=== PATIENT | female | born 1955 | race Caucasian/White ===

== ENCOUNTER 2017-11-02 08:02 | Day surgery (SDC) | payer OTHER, SELFPAY ==
--- NOTE | 2017-11-02 | PATH_ITS ---
[facility] Accession Number: [id number] . 01 Material submitted: . GASTRIC BIOPSY . 01 Clinical history: . FOR H.PYLORI . 02 Diagnosis: Stomach, Biopsies: Antral and body-type mucosa with no diagnostic abnormality. Negative for Helicobacter organisms by immunohistochemistry. Negative for intestinal metaplasia. Negative for dysplasia and malignancy. . I11/03/2017 . 02 Electronically signed: . Lyubov Olmos MD, Pathologist NPI- [id number] . 01 Gross description: . Received one formalin-filled container labeled with the patient's name and labeled gastric. The specimen consists of two less than 0.1 cm to 0.3 cm portions of tissue, entirely submitted in one cassette. (DC:[id number]) /FRR . 02 Microscopic: . An immunohistochemical stain was performed to evaluate for Helicobacter organisms and is negative. The control stain showed appropriate reactivity. . * This test was developed and its performance characteristics determined by [facility]. It has not been cleared or approved by the U.S. Food and Drug Administration. The FDA has determined that such clearance or approval is not necessary. This test is used for clinical purposes. It should not be regarded as investigational or for research. . 02 Pathologist provided ICD-10: R10.9 . 02 CPT . 908996, [id number] Performed at: 01 [facility] [address] [facility] [place], [place], [place] [id number] MD Serjio Santamaria MD Phone: [phone] Performed at: [facility] [id number] [place], [place] [id number] MD Jose Quintero MD Phone: [phone]
[2017-11-02] MEDS: SODIUM CHLORIDE 0.9% 1,000 ML 42 ML IV (08:19)
[2017-11-02 08:20] VITALS: BP 119/71; PULSE 66; RESP 15; TEMP 36.4; O2SAT 99; BMI 20.7
--- NOTE | 2017-11-02 09:14 | PM.HP.1 ---
History of Present Illness Date Patient Seen: 11/02/17 Time Patient Seen: 09:14 Chief complaint: [id number] Narrative: Severe GE reflux Patient History Family & Social History Social History: household members spouse Meds Allergies Allergy/AdvReac Type Severity Reaction Status Date / Time No Known Drug Allergies Allergy Verified 11/02/17 08:38 Exam Vital Signs (past 8 hours): - 11/02/17 08:20 Temperature 97.6 F Pulse Rate 66 Respiratory Rate 15 Blood Pressure 119/71 Pulse Oximetry 99 Oxygen Delivery Method Room Air Narrative Exam Narrative: Chest clear to auscultation percussion Oropharynx free of lesions Cardiac exam reveals no S3 or murmur Assessment & Plan Plan: Assessment/Plan Narrative: History of severe GE reflux unresponsive to Prilosec. Rule out significant esophagitis. Risks, benefits, and alternatives have been explained for upper endoscopy.
[2017-11-02] MEDS: MIDAZOLAM 5 MG/5 ML VIAL IV (09:53)
[2017-11-02] MEDS: fentaNYL 250 MCG/5 ML INJ IV (09:54)
[2017-11-02 10:03] VITALS: BP 104/75; PULSE 59; RESP 16; TEMP 36.4; O2SAT 96
--- NOTE | 2017-11-02 10:03 | PM.OP.ENDO ---
Operative Date/Time/Diagnoses Date of procedure: 11/02/17 Time of procedure: 10:03 Pre-op diagnosis: See indication Post-op diagnosis: same (See findings) Procedure & Clinicians Study performed: EGD Same procedure as scheduled: Yes Indications: Severe GE reflux Surgeon: Akilah Simmons Procedure Notes Procedure in detail: Procedure Notes Procedure in detail: After informed consent was obtained the patient was placed in the left lateral decubitus position. Video upper scope was placed into the oropharynx and with the patient all told the esophagus but the esophagus stomach and duodenum were carefully examined. On withdrawal retroflex view of the GE junction was performed. The scope was removed. The patient tolerated procedure well Blood loss none Complications none Sedation Versed 4 mg fentanyl 100 mcg IV titration Total sedation time 12 min Findings 1. Completely normal esophagus with no evidence of abnormal tissue above the level of the gastric folds and no esophagitis 2. Mild streaky gastric erythema biopsies taken to rule out Helicobacter 3. Normal duodenal bulb and sweep I would continue her on her current medication but if she would like some direction as to how to adjust her medication she should follow up in the office
[2017-11-02 10:08] VITALS: BP 100/67; PULSE 58; RESP 12; O2SAT 95
[2017-11-02 10:13] VITALS: BP 98/71; PULSE 56; RESP 12; O2SAT 95
[2017-11-02 10:21] VITALS: BP 97/70; PULSE 67; RESP 14; TEMP 36.7; O2SAT 97
== END 2017-11-02 10:33 ==
LOC: ENDO 08:04
PROVIDERS: PCP Physician Assistant Medical; Visit Provider Internal Medicine Gastroenterology
PROC: 0DJ08ZZ Inspection of Upper Intestinal Tract, Via Natural or Artificial Opening Endoscopic (ICD-10-PCS; CPT 43235; principal; 2017-11-02 09:30)
DX: K21.9 Gastro-esophageal reflux disease without esophagitis (principal)
CPT/HCPCS: 43239; 88305; 88342; J2250; J3010

== ENCOUNTER → 2020-01-01 08:50 | Outpatient (CLI) | payer OTHER, SELFPAY ==
[2020-01-01 10:17] LABS: Hematocrit 38.8 % (36-46); Hemoglobin 12.7 g/dL (12.0-16.0); Mean Corpuscular HGB Conc 32.6 % (30-36); Mean Corpuscular Volume 92.2 fL (80-100); Platelet Count 291 X10^3/uL (150-400); Red Blood Cell Count 4.21 X10^6/uL (4.0-5.2); Red Cell Distribution Width 13.7 % (11.6-14.8); White Blood Cell Count 3.8 X10^3/uL (4.5-11.0)
[2020-01-01 10:30] LABS: Alanine Aminotransferase 14 IU/L (<35); Albumin 4.2 g/dL (3.5-5.0); Albumin Globulin Ratio 1.5 (1.0-2.8); Alkaline Phosphatase 46 U/L (38-126); Aspartate Aminotransferase 26 IU/L (14-36); BUN Creatinine Ratio 25.4 (6-22); Bilirubin Total 0.4 mg/dL (0.2-1.3); Blood Urea Nitrogen 17 mg/dL (7-17); Calcium 9.6 mg/dL (8.4-10.2); Carbon Dioxide 32 mmol/L (22-32); Chloride 103 mmol/L (98-107); Cholesterol 212 mg/dL (140-199); Estimated Glomerular Filt Rate > 60.0 mL/min (>60); Globulin 2.8 g/dL (1.7-4.1); Glucose 105 mg/dL (80-110); HEMOLYSIS < 15 (0-50); Potassium 4.5 mmol/L (3.4-5.1); Sodium 137 mmol/L (137-145); Triglycerides 50 mg/dL (35-150)
[2020-01-01 10:39] LABS: HDL Cholesterol 120 mg/dL (40-60); LDL Cholesterol Calculated 82 mg/dL (<100)
[2020-01-01 10:58] LABS: TSH w/ Reflex to FT4 2.25 uIU/mL (0.47-4.68)
== END ==
PROVIDERS: PCP Registered Nurse Diabetes Educator; Referring Provider Registered Nurse Diabetes Educator; Visit Provider Registered Nurse Diabetes Educator
DX: Z00.00 Encounter for general adult medical examination without abnormal findings (principal)
CPT/HCPCS: 36415; 80053; 80061; 84443; 85027

== ENCOUNTER → 2020-02-05 09:33 | Outpatient (CLI) | payer OTHER, SELFPAY ==
--- NOTE | 2020-02-05 09:35 | DI.RAD.S_ITS ---
PROCEDURE: XR ACUTE ABDOMEN SERIES INDICATIONS: lower abdominal pain TECHNIQUE: One view chest and two views of the abdomen were acquired. COMPARISON: None. FINDINGS: Surgical changes and devices: None. Chest: Lungs are clear. Heart size is normal. No pleural effusions. No pneumoperitoneum. Abdomen: Bowel gas pattern is normal. No suspicious calcifications. Visualized solid organ contours appear normal. Bones: No suspicious bony lesions. Mild S-shaped scoliosis. IMPRESSION: Normal bowel gas pattern. Dictated by: Dc Foss [facility] Interpreted: Haylee Walls MD on 02/05/2020 at 9:49 Approved by: Haylee Walls M.D. on 02/05/2020 at 14:46
== END ==
PROVIDERS: PCP Registered Nurse Diabetes Educator; Referring Provider Registered Nurse Diabetes Educator; Visit Provider Registered Nurse Diabetes Educator
DX: R10.30 Lower abdominal pain, unspecified (principal)
CPT/HCPCS: 74022

== ENCOUNTER 2020-02-09 09:25 | Emergency (ER) | payer OTHER, SELFPAY ==
[2020-02-09] VITALS (7 sets, daily range): BP systolic 129–133; BP diastolic 70–79; PULSE 64–77; RESP 12–23; TEMP 36.7; O2SAT 99–100; BMI 19.3
--- NOTE | 2020-02-09 09:45 | ED_ITS ---
HPI - Abdominal Pain General Chief Complaint: Abdominal Pain Stated Complaint: stomach pain for several weeks, worsening Time Seen by Provider: 02/09/20 09:28 History of Present Illness HPI narrative: 64-year-old woman with a history of reflux and a bilateral mastectomy for breast cancer 20 years ago with no recurrent disease presents with increasing left lower quadrant pain. It has been present for a number of weeks getting progressively worse and to the point today where she was having enough pain that further evaluation was appropriate. She did see her primary care provider,[facility] They tried dicyclomine and an x-ray was done. An ultrasound has been ordered pending insurance approval. The pain is described as a gnawing aching pain in the left lower quadrant that does not completely resolve. Clearly is getting worse. It is worse with an empty stomach and seems to be worse with standing or sitting better when she is up and moving around. She notes that she has had minor weight change recently but has increased her exercise patterns. She also notes that that the volume of her overall stool has decreased and she is noticing that the caliber of the stool has significantly narrowed to ?snake like?. she notes no red blood or black stools. She says she did have a screening colonoscopy with polyps appreciated 3 years ago. Related Data Previous Rx's Medication Instructions Recorded omeprazole 20 mg capsule,delayed 20 mg PO BID PRN #180 cap 01/01/20 release dicyclomine 20 mg tablet 20 mg PO QID PRN #30 tab 02/05/20 Allergies Allergy/AdvReac Type Severity Reaction Status Date / Time No Known Drug Allergies Allergy Verified 02/09/20 09:48 Review of Systems Review of Systems Narrative: Pertinent positive and negative findings as per HPI Remainder of review of systems is otherwise unremarkable for Constitutional: Fevers, chills, weakness ENT: No sore throat, neck pain, ear pain CV: Chest pain, palpitations, dyspnea on exertion Respiratory: Cough, wheeze, dyspnea GI: Nausea, vomiting, diarrhea, : Dysuria, hematuria, flank pain MS: Muscle weakness, numbness, joint swelling or warmth Skin: Rashes, nonhealing lesions Neuro: Syncope, dizziness, tingling Patient History Medical History BCC (basal cell carcinoma of skin) (~2018) Breast cancer (~1998) Carpal tunnel syndrome (~2006) Chicken pox (~1963) Chronic GERD (~2009) Foot pain (~2015) Impaired fasting blood sugar Kidney stones (~2010) Measles (~1963) No significant medical problems Ovarian cyst (~2015) Retinal detachment (~2006) Wears glasses Surgical History Anesthesia History of bilateral mastectomy (~1999) History of carpal tunnel release (~2006) History of section (~1990) Patel's neuroma of right foot (~2015) Toe dislocation (~2015) Family History Father History of heart disease Hypertension Stroke Mother Breast cancer Brother Accident Grandfather History of heart disease Grandmother Breast cancer Grandfather Leukemia Grandmother No problems noted. Social History household members: spouse Smoking Status: Never smoker Smoking Status: Never smoker Exam Narrative Exam Narrative: General: Healthy appearing, in no acute distress. Able to give a complete and coherent history. Well-nourished well-developed HEENT: Moist mucous membranes, normal sclera with reactive pupils, Neck: No JVD, supple Respiratory: Lungs are clear to auscultation, no wheezing no rales no rhonchi. Full and symmetrical air movement Cardiac: Regular rate and rhythm no murmurs no bruits Abdomen: Soft, mild tenderness in the left lower quadrant without rebound or guarding no palpable masses appreciated, good bowel tones, no flank pain Skin: Warm and dry, no rashes Neurologic: Grossly neurologically intact with no obvious asymmetries or abnormalities Extremities: No trauma, well perfused Psych: Cooperative, appropriate insight and affect Initial Vital Signs Initial Vital Signs: Vital Signs Temperature 98.0 F 02/09/20 09:43 Pulse Rate 67 02/09/20 09:43 Respiratory Rate 18 02/09/20 09:43 Blood Pressure 133/71 02/09/20 09:43 Pulse Oximetry 100 02/09/20 09:43 Course Orders Ordered: ED Orders 02/09/20 10:34 CT abdomen pelvis w con Stat 02/09/20 10:55 Complete Blood Count AUTO DIFF Stat Comprehensive Metabolic Panel Stat Lipase Stat Partial Thromboplastin Time Stat Prothrombin Time INR Stat Vital Signs Vital signs: Vital Signs - 8 hr 02/09/20 09:43 Temperature 98.0 F Pulse Rate 67 Respiratory Rate 18 Blood Pressure 133/71 Pulse Oximetry 100 MDM - Abdominal Pain Medical Records Attestation: I reviewed the patient's medical records. Lab Data Attestation: I reviewed the patient's lab results. Result diagrams: 02/09/20 10:55 02/09/20 10:55 Labs: Lab Results 02/09/20 02/09/20 02/09/20 Range/Units 10:55 10:55 10:55 WBC 4.6 (4.5-11.0) X10^3/uL RBC 4.28 (4.0-5.2) X10^6/uL Hgb 12.8 (12.0-16.0) g/dL Hct 39.6 (36-46) % MCV 92.5 (80-100) fL MCH 30.0 (26-34) PG MCHC 32.4 (30-36) % RDW 13.5 (11.6-14.8) % Plt Count 291 (150-400) X10^3/uL Neut % (Auto) 61.7 (50-75) % Lymph % (Auto) 27.6 (25-40) % [place] % (Auto) 8.8 (3-14) % Eos % (Auto) 0.9 L (2-4) % Baso % (Auto) 1.0 (0-2) % Neut # (Auto) 2900 (8219-1933) /uL Lymph # (Auto) 1300 (6742-0152) /uL [place] # (Auto) 400 (0-900) /uL Eos # (Auto) 0 (0-450) /uL Baso # (Auto) 0 (0-100) /uL PT 11.2 (10.1-12.7) SECONDS INR 1.0 (0.9-1.3) APTT 31 (26.4-36.2) SECONDS Sodium 137 (137-145) mmol/L Potassium 4.5 (3.4-5.1) mmol/L Chloride 104 (98-107) mmol/L Carbon Dioxide 30 (22-32) mmol/L BUN 15 (7-17) mg/dL Creatinine 0.69 (0.52-1.04) mg/dL Estimated GFR > 60.0 (>60) mL/min BUN/Creatinine Ratio 21.7 (6-22) Glucose 103 (80-110) mg/dL Calcium 9.8 (8.4-10.2) mg/dL Total Bilirubin 0.7 (0.2-1.3) mg/dL AST 30 (14-36) IU/L ALT 17 (<35) IU/L Alkaline Phosphatase 51 (38-126) U/L Total Protein 7.3 (6.3-8.2) g/dL Albumin 4.5 (3.5-5.0) g/dL Globulin 2.8 (1.7-4.1) g/dL Albumin/Globulin Ratio 1.6 (1.0-2.8) Lipase 123 (23-300) U/L Point of care testing: Urine Dip Bedside Urine Glucose Negative Bedside Urine Bilirubin - Negative Bedside Urine Ketone - Negative Urine Specific Marlin 1.015 Bedside Urine Occult Blood - Negative Bedside Urine pH 8.0 Bedside Urine Protein - Negative Bedside Urine Urobilinogen - Negative Bedside Urine Nitrite - Negative Bedside Urine Leukocytes - Negative Esterase Imaging Data Chest x-ray: Radiologist's Impression: FINDINGS: Surgical changes and devices: None. Chest: Lungs are clear. Heart size is normal. No pleural effusions. No pneumoperitoneum. Abdomen: Bowel gas pattern is normal. No suspicious calcifications. Visualized solid organ contours appear normal. Bones: No suspicious bony lesions. Mild S-shaped scoliosis. IMPRESSION: Normal bowel gas pattern. Dictated by: Dc Foss [facility] Interpreted: Haylee Walls MD on 02/05/2020 at 9:49 CT scan - abdomen/pelvis: Radiologist's Impression: FINDINGS: Image quality: Excellent. ABDOMEN: Lung bases: Lung bases are clear. Heart size is normal. Solid organs: Liver is normal in size and enhancement. Gallbladder wall is not thickened. Biliary system is non dilated. Pancreas enhances normally. Spleen is normal in size and enhancement. No adrenal nodules. Kidneys demonstrate normal size and enhancement, without hydronephrosis. Peritoneum and bowel: In this patient with this given history, scrutiny is given to sigmoid colon and in the left lower quadrant. There is mild sigmoid diverticulosis, without findings of active diverticulitis. No distal colonic masses are seen. Bowel loops demonstrate normal wall thickness and caliber. No free fluid or air. Nodes and vessels: No retroperitoneal or mesenteric adenopathy by size criteria. Aorta and inferior vena cava are normal in size. Miscellaneous: No ventral hernias. PELVIS: Genitourinary: Bladder wall thickness is normal. An atrophic uterus is seen. No adnexal masses are seen. Miscellaneous: No inguinal hernias or adenopathy. Bones: No suspicious bony lesions. No vertebral body compression fractures. Mild levoconvex scoliotic curvature is noted. Focal L4-L5 degenerative change is s een. Milder degenerative changes are seen elsewhere. IMPRESSION: Sigmoid diverticulosis, without diverticulitis. No distal colonic masses are seen. Please consider a scheduled colonoscopy when clinically appropriate for further evaluation of this patient's presenting history. Incidental note is made of: Levoconvex scoliotic curvature Focal L4-L5 degenerative change Dictated by: Jesus Weaver M.D. on 02/09/2020 at 11:09 MDM Narrative Medical decision making narrative: 64-year-old woman presents with a couple of weeks of left lower quadrant pain that has continued to worsen. She has noted a change to the caliber of her stools. CT scan of the abdomen does not show pelvic masses, abnormalities nor specific colon abnormalities or rectal masses. There is a moderate amount of stool throughout the colon. Suggest a mild bowel cleanse and see if this helps with the pain. She does have follow-up with her primary care provider. At this point there is no evidence for infection, surgical intervention required, pelvic or rectal masses and no overt explanation for the increasing left lower quadrant pain. Discharge Plan Departure Patient Disposition: Home Clinical Impression: Lower abdominal pain, Change in stool caliber Constipation Qualifiers: Constipation type: unspecified constipation type Qualified Code(s): K59.00 - Constipation, unspecified Instructions: DI for Constipation Activity Restrictions/Additional Instructions: Thank you for coming in today I am glad workup I was able to do in the emergency department is so reassuring. I do not find any evidence of masses, tumors or anything that would need surgical intervention. There is no evidence of kidney issues, kidney stones, uterus or ovary abnormalities and no infection. I am going to suggest that you try magnesium citrate when you get home and see if simply cleaning all of the stool out of your colon is helpful in relieving her symptoms. If it is, you do not need to continue with any additional medications however increasing fiber overall may be helpful in preventing this from happening again. If you do continue to have pain do try the dicyclomine and see if that makes a difference. I would recommend colonoscopy follow-up at 5 years from your last colonoscopy as recommended at that time. If you have new or worsening symptoms, please feel free to return to the emergency department for further evaluation. I wish you the best Prescriptions: No Action omeprazole 20 mg capsule,delayed release(DR/EC) 20 mg PO BID PRN (Reason: reflux symptoms) Qty: 180 RF: 3 dicyclomine 20 mg tablet 20 mg PO QID PRN (Reason: abdominal pain) Qty: 30 RF: 2 Referrals: Cameron Carter ARNP [Primary Care Provider] -
--- NOTE | 2020-02-09 10:34 | DI.CT.S_ITS ---
PROCEDURE: CT ABDOMEN PELVIS W CON INDICATIONS: LLQ pain, changes to stool caliber TECHNIQUE: After the administration of intravenous contrast, 5 mm thick sections acquired from the diaphragm to the symphysis. 5 mm coronal and sagittal reformats were acquired. For radiation dose reduction, the following was used: automated exposure control, adjustment of mA and/or kV according to patient size. COMPARISON: [facility], CR, XR ACUTE ABDOMEN SERIES, 02/05/2020, 9:40. [facility], CT, ABDOMEN/PELVIS WITH CONTRAST, 10/19/2015, 5:09. FINDINGS: Image quality: Excellent. ABDOMEN: Lung bases: Lung bases are clear. Heart size is normal. Solid organs: Liver is normal in size and enhancement. Gallbladder wall is not thickened. Biliary system is non dilated. Pancreas enhances normally. Spleen is normal in size and enhancement. No adrenal nodules. Kidneys demonstrate normal size and enhancement, without hydronephrosis. Peritoneum and bowel: In this patient with this given history, scrutiny is given to sigmoid colon and in the left lower quadrant. There is mild sigmoid diverticulosis, without findings of active diverticulitis. No distal colonic masses are seen. Bowel loops demonstrate normal wall thickness and caliber. No free fluid or air. Nodes and vessels: No retroperitoneal or mesenteric adenopathy by size criteria. Aorta and inferior vena cava are normal in size. Miscellaneous: No ventral hernias. PELVIS: Genitourinary: Bladder wall thickness is normal. An atrophic uterus is seen. No adnexal masses are seen. Miscellaneous: No inguinal hernias or adenopathy. Bones: No suspicious bony lesions. No vertebral body compression fractures. Mild levoconvex scoliotic curvature is noted. Focal L4-L5 degenerative change is seen. Milder degenerative changes are seen elsewhere. IMPRESSION: Sigmoid diverticulosis, without diverticulitis. No distal colonic masses are seen. Please consider a scheduled colonoscopy when clinically appropriate for further evaluation of this patient's presenting history. Incidental note is made of: Levoconvex scoliotic curvature Focal L4-L5 degenerative change Dictated by: Jesus Weaver M.D. on 02/09/2020 at 11:09 Approved by: Jesus Weaver M.D. on 02/09/2020 at 11:14
[2020-02-09 11:06] LABS: Add Manual Diff / Slide Review NO; Basophils Absolute Auto 0 /uL (0-100); Eosinophils Absolute Auto 0 /uL (0-450); Eosinophils Percent Auto 0.9 % (2-4); Hematocrit 39.6 % (36-46); Hemoglobin 12.8 g/dL (12.0-16.0); Lymphocytes Absolute Auto 1300 /uL (1100-4500); Lymphocytes Percent Auto 27.6 % (25-40); Mean Corpuscular HGB Conc 32.4 % (30-36); Mean Corpuscular Volume 92.5 fL (80-100); Monocytes Absolute Auto 400 /uL (0-900); Monocytes Percent Auto 8.8 % (3-14); Neutrophils Absolute Auto 2900 /uL (1500-7000); Neutrophils Percent Auto 61.7 % (50-75); Platelet Count 291 X10^3/uL (150-400); Red Blood Cell Count 4.28 X10^6/uL (4.0-5.2); Red Cell Distribution Width 13.5 % (11.6-14.8); White Blood Cell Count 4.6 X10^3/uL (4.5-11.0)
[2020-02-09 11:09] LABS: Prothrombin Time 11.2 SECONDS (10.1-12.7)
[2020-02-09 11:12] LABS: PTT Partial Thromboplastin Tim 31 SECONDS (26.4-36.2)
[2020-02-09 11:13] LABS: Alanine Aminotransferase 17 IU/L (<35); Albumin 4.5 g/dL (3.5-5.0); Albumin Globulin Ratio 1.6 (1.0-2.8); Alkaline Phosphatase 51 U/L (38-126); Aspartate Aminotransferase 30 IU/L (14-36); BUN Creatinine Ratio 21.7 (6-22); Bilirubin Total 0.7 mg/dL (0.2-1.3); Blood Urea Nitrogen 15 mg/dL (7-17); Calcium 9.8 mg/dL (8.4-10.2); Carbon Dioxide 30 mmol/L (22-32); Chloride 104 mmol/L (98-107); Estimated Glomerular Filt Rate > 60.0 mL/min (>60); Globulin 2.8 g/dL (1.7-4.1); Glucose 103 mg/dL (80-110); HEMOLYSIS 16 (0-50); Lipase 123 U/L (23-300); Potassium 4.5 mmol/L (3.4-5.1); Sodium 137 mmol/L (137-145); Total Protein 7.3 g/dL (6.3-8.2)
[2020-02-09] MEDS: MAGNESIUM CITRATE 300 ML SOLUTION PO (13:13)
== END 2020-02-09 13:16 | disposition home or self-care (01) ==
PROVIDERS: Emergency Provider Emergency Medicine; PCP Registered Nurse Diabetes Educator
DX: R10.32 Left lower quadrant pain (principal); K59.00 Constipation, unspecified; R19.5 Other fecal abnormalities
CPT/HCPCS: 36415; 74177; 80053; 81003; 83690; 85025; 85610; 85730; 99283; 99284; Q9967

== ENCOUNTER → 2020-03-03 09:44 | Outpatient (CLI) | payer OTHER, SELFPAY ==
--- NOTE | 2020-03-03 09:45 | DI.US.S_ITS ---
PROCEDURE: US PELVIC COMPLETE INDICATIONS: LOWER ABDOMINAL PAIN TECHNIQUE: Real-time scanning was performed of the pelvic organs, with image documentation. Additional endovaginal scanning was necessary due to incomplete visualization of the adnexal and endometrial structures by transabdominal scanning. COMPARISON: None. FINDINGS: Transabdominal scanning: Limited scanning through the kidneys shows no hydronephrosis. No pathologic free abdominal or pelvic fluid. Endovaginal scanning: Uterus: Uterus is normal in size at 2.8 x 4.5 x 6.4 cm. The endometrium measures 1.6 mm in combined thickness. Ovaries: The right ovary measures 1.5 x 0.8 x 1.5 cm and the left measures 1.5 x 0.9 x 0.9 cm. IMPRESSION: Normal pelvic ultrasound, source of reported left lower abdominal pain is not seen. Dictated by: Edwin Gardner M.D. on 03/03/2020 at 13:05 Approved by: Edwin Gardner M.D. on 03/03/2020 at 13:07
== END ==
PROVIDERS: PCP Registered Nurse Diabetes Educator; Referring Provider Registered Nurse Diabetes Educator; Visit Provider Registered Nurse Diabetes Educator
DX: R10.32 Left lower quadrant pain (principal)
CPT/HCPCS: 76830; 76856

== ENCOUNTER 2020-05-18 14:33 | Emergency (ER) | payer OTHER, SELFPAY ==
[2020-05-18] VITALS (8 sets, daily range): BP systolic 106–140; BP diastolic 66–74; PULSE 66–79; RESP 16–23; TEMP 36.6; O2SAT 99–100; BMI 19.3
--- NOTE | 2020-05-18 15:04 | ED.ABDPAIN ---
HPI - Abdominal Pain General Chief Complaint: Abdominal Pain Stated Complaint: Nausea/Abd Pain/Weight Loss Time Seen by Provider: 05/18/20 15:04 Source: patient Mode of arrival: Ambulatory Limitations: no limitations History of Present Illness HPI narrative: This is a 65-year-old female comes emergency department complaint of nausea, abdominal low back pain. Patient has had chronic abdominal pain since December. She has had CT, followed by upper and lower endoscopy in April and has seen Gastroenterology as well as had stool studies. She states they found she has too much bat in her stool but otherwise no acute causes or findings. No fevers, no chills. Today she has been nauseated all day but has no had no emesis. She is complaining of some lower back pain that started yesterday. She has had low back pain on and off in the past she states this feels different but cannot describe the difference other than feeling ?achy?. She has also had some abdominal discomfort shooting around throughout her abdomen with no specific location. Patient denies any urinary symptoms. No vaginal bleeding or discharge. She had a normal bowel movement today with no acute changes to her stools. Patient denies any other past medical issues besides mastectomy for breast cancer and . She is not on any medications regularly. She drinks 1 to alcoholic drinks nightly but no other illicit or tobacco. Her primary care is Cameron Carter. Related Data Previous Rx's Medication Instructions Recorded omeprazole 20 mg capsule,delayed 20 mg PO BID PRN #180 cap 01/01/20 release dicyclomine 20 mg tablet 20 mg PO QID PRN #30 tab 02/05/20 Allergies Allergy/AdvReac Type Severity Reaction Status Date / Time No Known Drug Allergies Allergy Verified 05/18/20 14:48 Patient History Medical History BCC (basal cell carcinoma of skin) (~2017) Breast cancer (~1998) Carpal tunnel syndrome (~2006) Chicken pox (~1963) Chronic GERD (~2009) Foot pain (~2015) Impaired fasting blood sugar Kidney stones (~2010) Measles (~1963) No significant medical problems Ovarian cyst (~2015) Retinal detachment (~2006) Wears glasses Surgical History Anesthesia History of bilateral mastectomy (~1999) History of carpal tunnel release (~2006) History of section (~1990) Patel's neuroma of right foot (~2015) Toe dislocation (~2015) Family History Father History of heart disease Hypertension Stroke Mother Breast cancer Brother Accident Grandfather History of heart disease Grandmother Breast cancer Grandfather Leukemia Grandmother No problems noted. Social History household members: spouse Smoking Status: Never smoker Smoking Status: Never smoker alcohol intake frequency: 0-2 drinks per day Substance Use Type: does not use Exam Narrative Exam Narrative: GENERAL: Alert and oriented x three, thin female in mild distress. HEENT: Head normocephalic, atraumatic, EOMI, pupils reactive, face symmetric, moist mucous membranes NECK: Supple, full range of motion CARDIOVASCULAR: Regular rate and rhythm without murmurs, rubs or gallops. RESPIRATORY: Breath sounds equal bilaterally, no wheezes rales or rhonchi. ABDOMEN: Soft, nontender. Normoactive bowel sounds all 4 quadrants. No guarding or rebound, rigidity, no mass : No CVA tenderness EXTREMITIES: Normal range of motion, no clubbing or edema. Neurovascularly intact NEUROLOGICAL: Cranial nerves II through XII grossly intact. Moving all extremities SKIN: Warm, dry, no petechiae, no rashes or lesions. Initial Vital Signs Initial Vital Signs: Vital Signs Temperature 97.8 F 05/18/20 14:48 Pulse Rate 79 05/18/20 14:48 Respiratory Rate 16 05/18/20 14:48 Blood Pressure 140/74 05/18/20 14:48 Pulse Oximetry 100 05/18/20 14:48 Scores GCS [place] coma scale eye opening: Spontaneous Ally coma scale verbal response: Orientated [place] coma scale motor response: Obey commands [place] coma scale total score: 15 Course Orders Ordered: ED Orders 05/18/20 14:47 Complete Blood Count AUTO DIFF Stat Comprehensive Metabolic Panel Stat Lipase Stat Troponin & CK Cardiac Panel Stat 05/18/20 16:00 XR acute abdomen series Stat Discontinued Medications Sodium Chloride (Normal Saline 0.9%) 1,000 mls @ 150 mls/hr IV CONT LUCIA Last Admin: 05/18/20 17:42 Dose: Not Given Documented by: KAM Sodium Chloride (Normal Saline 0.9%) 1,000 mls @ 1,000 mls/hr IV BOLUS ONE Stop: 05/18/20 17:00 Last Infusion: 05/18/20 17:20 Dose: 0 mls/hr Documented by: Admin: 05/18/20 16:21 Dose: 1,000 mls/hr Documented by: MAINOR Ondansetron HCl (Ondansetron 4 Mg/2 Ml Inj) 4 mg IV NOW ONE Stop: 05/18/20 16:01 Last Admin: 05/18/20 16:21 Dose: 4 mg Documented by: MAINOR Reevaluation(s) Reevaluation #1: Reviewed patient's labs and imaging. She is not taking any medications or supplements that are likely to cause her hyponatremia. She states she has been hydrating frequently with just water and has been ingesting quite a bit. This may be possibly a cause. Patient states her nausea has improved here in the department. She is not currently feeling dizzy. Plan to have her follow-up with her primary care alternate some of her water with Gatorade or Pedialyte and increase her salt intake slightly and see if this improves her symptoms as well as having her sodium level rechecked in the next week. 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 We discussed that the hyponatremia may or may not be related to her abdominal issues. Time: 17:08 Vital Signs Vital signs: Vital Signs - 8 hr 05/18/20 14:48 05/18/20 15:00 05/18/20 15:01 Temperature 97.8 F Pulse Rate 79 73 Respiratory Rate 16 Blood Pressure 140/74 124/71 Pulse Oximetry 100 100 05/18/20 15:30 05/18/20 16:00 05/18/20 16:30 Temperature Pulse Rate 74 74 67 Respiratory Rate 23 17 Blood Pressure 130/73 120/69 Pulse Oximetry 99 99 99 05/18/20 17:00 05/18/20 17:20 Temperature Pulse Rate 67 66 Respiratory Rate 17 17 Blood Pressure 106/66 Pulse Oximetry 100 100 MDM - Abdominal Pain Lab Data Attestation: I reviewed the patient's lab results. Result diagrams: 05/18/20 14:47 05/18/20 14:47 Labs: Lab Results 05/18/20 05/18/20 05/18/20 Range/Units 14:47 14:47 14:47 WBC 5.1 (4.5-11.0) X10^3/uL RBC 4.07 (4.0-5.2) X10^6/uL Hgb 12.2 (12.0-16.0) g/dL Hct 37.2 (36-46) % MCV 91.4 (80-100) fL MCH 30.0 (26-34) PG MCHC 32.9 (30-36) % RDW 12.6 (11.6-14.8) % Plt Count 278 (150-400) X10^3/uL Neut % (Auto) 49.2 L (50-75) % Lymph % (Auto) 39.9 (25-40) % Dickson % (Auto) 9.5 (3-14) % Eos % (Auto) 0.7 L (2-4) % Baso % (Auto) 0.7 (0-2) % Neut # (Auto) 2500 (9268-4623) /uL Lymph # (Auto) 2000 (8997-1610) /uL Dickson # (Auto) 500 (0-900) /uL Eos # (Auto) 0 (0-450) /uL Baso # (Auto) 0 (0-100) /uL Sodium 127 L (137-145) mmol/L Potassium 3.9 (3.4-5.1) mmol/L Chloride 96 L (98-107) mmol/L Carbon Dioxide 27 (22-32) mmol/L BUN 12 (7-17) mg/dL Creatinine 0.77 (0.52-1.04) mg/dL Estimated GFR > 60.0 (>60) mL/min BUN/Creatinine Ratio 15.6 (6-22) Glucose 94 (80-110) mg/dL Calcium 9.6 (8.4-10.2) mg/dL Total Bilirubin 0.4 (0.2-1.3) mg/dL AST 26 (14-36) IU/L ALT 13 (<35) IU/L Alkaline Phosphatase 56 (38-126) U/L Total Creatine Kinase 51 (30-135) U/L CK-MB (CK-2) TNP CK-MB (CK-2) Rel Index TNP Troponin I < 0.012 (0.01-0.034) ng/mL Total Protein 7.1 (6.3-8.2) g/dL Albumin 4.4 (3.5-5.0) g/dL Globulin 2.7 (1.7-4.1) g/dL Albumin/Globulin Ratio 1.6 (1.0-2.8) Lipase 243 (23-300) U/L Point of care testing: Urine Dip Bedside Urine Glucose Negative Bedside Urine Bilirubin - Negative Bedside Urine Ketone - Negative Urine Specific [place] 1.005 Bedside Urine Occult Blood - Negative Bedside Urine pH 6 Bedside Urine Protein - Negative Bedside Urine Urobilinogen - Negative Bedside Urine Nitrite - Negative Bedside Urine Leukocytes - Negative Esterase Imaging Data Abdominal x-ray: Radiologist's Impression: Salome Bernal 65 F [address] [id number] ReportSigned Patient: Salome Bernal DMR#: [id number]: 1955cct:[id number]/Sex: 65 / FDate of Service: 05/18/20Loc: EDAccession Number: [id number] Procedure: XR acute abdomen series Ordering Provider: Radha Baker D.O. PROCEDURE: XR ACUTE ABDOMEN SERIES INDICATIONS: nausea/low back pain, chronic abd pain TECHNIQUE: One view chest and two views of the abdomen were acquired. COMPARISON: [facility], , XR ACUTE ABDOMEN SERIES, 02/05/2020, 9:40. FINDINGS: Surgical changes and devices: None. Chest: Lungs are clear. Heart size is normal. No pleural effusions. No pneumoperitoneum. Abdomen: Bowel gas pattern is normal. No suspicious calcifications. Visualized solid organ contours appear normal. Bones: No suspicious bony lesions. IMPRESSION: No acute process. Dictated by: Jose Hicks M.D. on 05/18/2020 at 16:18 Approved by: Jose Hicks M.D. on 05/18/2020 at 16:18 [facility] Narrative Medical decision making narrative: This is a 65-year-old female who comes in with complaint of chronic abdominal pain. Today she returns for nausea which she has had intermittently but has been persistent today as well as some recurrent abdominal discomfort and low back discomfort. Patient states she has had the back issues in the past this feels different she can only describe it as icky.Patient's labs show hyponatremia initial x-ray testing does not show any acute changes. Patient has had CT, EGD and colonoscopy, stool studies swelling up with gastroenterology and has been scheduled for an MRI of her abdomen with a benign abdominal exam and no other significant lab findings we discussed that she will continue to follow up with her regular planned care. She has been increasing her hydration significantly and we discussed some alterations she can make and she will need to have some sodium we tested. Return precautions discussed all questions answered. Discharge Plan Departure Patient Disposition: Home Clinical Impression: Hyponatremia Instructions: DI for Hyponatremia Activity Restrictions/Additional Instructions: Follow up with your physician this week for recheck of your sodium level. Your labs show hyponatremia or a low sodium level. This can be making you feel nauseated. Return to the emergency department for fevers, lightheadedness or passing out, new weakness, difficulty with movement, difficulty with speech, new chest pain or shortness of breath, new or worsening abdominal or back pain, persistent vomiting, difficulty with urination or inability to urinate, or other new or concerning symptoms. Prescriptions: No Action omeprazole 20 mg capsule,delayed release(DR/EC) 20 mg PO BID PRN (Reason: reflux symptoms) Qty: 180 RF: 3 dicyclomine 20 mg tablet 20 mg PO QID PRN (Reason: abdominal pain) Qty: 30 RF: 2 Referrals: Cameron Carter ARNP [Primary Care Provider] -
[2020-05-18 15:48] LABS: Add Manual Diff / Slide Review NO; Basophils Absolute Auto 0 /uL (0-100); Basophils Percent Auto 0.7 % (0-2); Eosinophils Absolute Auto 0 /uL (0-450); Eosinophils Percent Auto 0.7 % (2-4); Hematocrit 37.2 % (36-46); Hemoglobin 12.2 g/dL (12.0-16.0); Lymphocytes Absolute Auto 2000 /uL (1100-4500); Lymphocytes Percent Auto 39.9 % (25-40); Mean Corpuscular HGB Conc 32.9 % (30-36); Mean Corpuscular Volume 91.4 fL (80-100); Monocytes Absolute Auto 500 /uL (0-900); Monocytes Percent Auto 9.5 % (3-14); Neutrophils Absolute Auto 2500 /uL (1500-7000); Neutrophils Percent Auto 49.2 % (50-75); Platelet Count 278 X10^3/uL (150-400); Red Blood Cell Count 4.07 X10^6/uL (4.0-5.2); Red Cell Distribution Width 12.6 % (11.6-14.8); White Blood Cell Count 5.1 X10^3/uL (4.5-11.0)
[2020-05-18 15:51] LABS: Alanine Aminotransferase 13 IU/L (<35); Albumin 4.4 g/dL (3.5-5.0); Albumin Globulin Ratio 1.6 (1.0-2.8); Alkaline Phosphatase 56 U/L (38-126); Aspartate Aminotransferase 26 IU/L (14-36); BUN Creatinine Ratio 15.6 (6-22); Bilirubin Total 0.4 mg/dL (0.2-1.3); Blood Urea Nitrogen 12 mg/dL (7-17); Calcium 9.6 mg/dL (8.4-10.2); Carbon Dioxide 27 mmol/L (22-32); Chloride 96 mmol/L (98-107); Estimated Glomerular Filt Rate > 60.0 mL/min (>60); Globulin 2.7 g/dL (1.7-4.1); Glucose 94 mg/dL (80-110); HEMOLYSIS 16 (0-50); Lipase 243 U/L (23-300); Potassium 3.9 mmol/L (3.4-5.1); Sodium 127 mmol/L (137-145); Total Protein 7.1 g/dL (6.3-8.2)
--- NOTE | 2020-05-18 16:00 | DI.RAD.S_ITS ---
PROCEDURE: XR ACUTE ABDOMEN SERIES INDICATIONS: nausea/low back pain, chronic abd pain TECHNIQUE: One view chest and two views of the abdomen were acquired. COMPARISON: [facility], , XR ACUTE ABDOMEN SERIES, 02/05/2020, 9:40. FINDINGS: Surgical changes and devices: None. Chest: Lungs are clear. Heart size is normal. No pleural effusions. No pneumoperitoneum. Abdomen: Bowel gas pattern is normal. No suspicious calcifications. Visualized solid organ contours appear normal. Bones: No suspicious bony lesions. IMPRESSION: No acute process. Dictated by: Jose Hicks M.D. on 05/18/2020 at 16:18 Approved by: Jose Hicks M.D. on 05/18/2020 at 16:18
[2020-05-18 16:14] LABS: Creatine Kinase 51 U/L (30-135)
[2020-05-18] MEDS: SODIUM CHLORIDE 0.9% 1,000 ML 1000 ML IV (16:21)
[2020-05-18] MEDS: ONDANSETRON 4 MG/2 ML INJ IV (16:21)
[2020-05-18 16:27] LABS: Troponin I < 0.012 ng/mL (0.01-0.034)
== END 2020-05-18 17:44 | disposition home or self-care (01) ==
PROVIDERS: Emergency Provider Emergency Medicine; PCP Registered Nurse Diabetes Educator
DX: E87.1 Hypo-osmolality and hyponatremia (principal); R11.0 Nausea; M54.5 Low back pain; R10.9 Unspecified abdominal pain
CPT/HCPCS: 36415; 74022; 80053; 81003; 82550; 83690; 84484; 85025; 93005; 96365; 96375; 99283; 99284; J2405

== ENCOUNTER → 2020-05-21 07:04 | Outpatient (CLI) | payer OTHER, SELFPAY ==
[2020-05-21 08:11] LABS: Hematocrit 36.8 % (36-46); Hemoglobin 12.2 g/dL (12.0-16.0); Mean Corpuscular Hemoglobin 30.2 PG (26-34); Mean Corpuscular Volume 91.5 fL (80-100); Platelet Count 251 X10^3/uL (150-400); Red Blood Cell Count 4.02 X10^6/uL (4.0-5.2); Red Cell Distribution Width 13.1 % (11.6-14.8); White Blood Cell Count 3.2 X10^3/uL (4.5-11.0)
[2020-05-21 08:18] LABS: BUN Creatinine Ratio 16.4 (6-22); Blood Urea Nitrogen 12 mg/dL (7-17); Calcium 9.7 mg/dL (8.4-10.2); Carbon Dioxide 30 mmol/L (22-32); Chloride 99 mmol/L (98-107); Estimated Glomerular Filt Rate > 60.0 mL/min (>60); Glucose 81 mg/dL (80-110); HEMOLYSIS < 15 (0-50); Potassium 4.2 mmol/L (3.4-5.1); Sodium 134 mmol/L (137-145)
[2020-05-21 09:35] LABS: Neutrophils Absolute Manual 1024 /uL (3000-5900); Total Cells Counted 100
[2020-05-21 09:36] LABS: RBC Morphology Normal Morphology
== END ==
PROVIDERS: PCP Registered Nurse Diabetes Educator; Referring Provider Registered Nurse Diabetes Educator; Visit Provider Registered Nurse Diabetes Educator
DX: D72.819 Decreased white blood cell count, unspecified (principal); R73.01 Impaired fasting glucose; E87.1 Hypo-osmolality and hyponatremia
CPT/HCPCS: 36415; 80048; 85025

== ENCOUNTER → 2020-05-28 07:07 | Outpatient (CLI) | payer OTHER, SELFPAY ==
[2020-05-28 08:12] LABS: Hematocrit 36.1 % (36-46); Hemoglobin 12.2 g/dL (12.0-16.0); Mean Corpuscular HGB Conc 33.8 % (30-36); Mean Corpuscular Hemoglobin 30.6 PG (26-34); Mean Corpuscular Volume 90.7 fL (80-100); Platelet Count 257 X10^3/uL (150-400); Red Blood Cell Count 3.98 X10^6/uL (4.0-5.2); White Blood Cell Count 4.2 X10^3/uL (4.5-11.0)
[2020-05-28 08:25] LABS: BUN Creatinine Ratio 23.9 (6-22); Blood Urea Nitrogen 16 mg/dL (7-17); Calcium 9.3 mg/dL (8.4-10.2); Carbon Dioxide 28 mmol/L (22-32); Chloride 100 mmol/L (98-107); Estimated Glomerular Filt Rate > 60.0 mL/min (>60); Glucose 74 mg/dL (80-110); HEMOLYSIS < 15 (0-50); Potassium 4.1 mmol/L (3.4-5.1); Sodium 135 mmol/L (137-145)
[2020-05-28 08:38] LABS: Neutrophils Absolute Manual 2478 /uL (3000-5900); RBC Morphology Normal Morphology; Total Cells Counted 100
[2020-05-28 09:09] LABS: TSH w/ Reflex to FT4 3.28 uIU/mL (0.47-4.68)
== END ==
PROVIDERS: PCP Registered Nurse Diabetes Educator; Referring Provider Registered Nurse Diabetes Educator; Visit Provider Registered Nurse Diabetes Educator
DX: E87.1 Hypo-osmolality and hyponatremia (principal); R42 Dizziness and giddiness; D70.9 Neutropenia, unspecified; R10.12 Left upper quadrant pain; R63.4 Abnormal weight loss
CPT/HCPCS: 36415; 80048; 84443; 85025; 85060

== ENCOUNTER → 2020-07-31 14:08 | Outpatient (CLI) | payer OTHER, SELFPAY ==
[2020-07-31 14:37] LABS: Add Manual Diff / Slide Review NO; Basophils Absolute Auto 0 /uL (0-100); Basophils Percent Auto 0.9 % (0-2); Eosinophils Absolute Auto 100 /uL (0-450); Eosinophils Percent Auto 2.4 % (2-4); Hematocrit 37.1 % (36-46); Hemoglobin 12.4 g/dL (12.0-16.0); Lymphocytes Absolute Auto 1500 /uL (1100-4500); Lymphocytes Percent Auto 33.3 % (25-40); Mean Corpuscular HGB Conc 33.4 % (30-36); Mean Corpuscular Volume 92.9 fL (80-100); Monocytes Absolute Auto 500 /uL (0-900); Neutrophils Absolute Auto 2500 /uL (1500-7000); Neutrophils Percent Auto 53.4 % (50-75); Platelet Count 275 X10^3/uL (150-400); Red Cell Distribution Width 14.1 % (11.6-14.8); White Blood Cell Count 4.6 X10^3/uL (4.5-11.0)
[2020-07-31 14:51] LABS: Alanine Aminotransferase 18 IU/L (<35); Albumin 4.5 g/dL (3.5-5.0); Albumin Globulin Ratio 1.6 (1.0-2.8); Alkaline Phosphatase 59 U/L (38-126); Aspartate Aminotransferase 29 IU/L (14-36); BUN Creatinine Ratio 27.7 (6-22); Blood Urea Nitrogen 18 mg/dL (7-17); Calcium 9.6 mg/dL (8.4-10.2); Carbon Dioxide 29 mmol/L (22-32); Chloride 103 mmol/L (98-107); Estimated Glomerular Filt Rate > 60.0 mL/min (>60); Globulin 2.8 g/dL (1.7-4.1); Glucose 115 mg/dL (80-110); HEMOLYSIS < 15 (0-50); Potassium 4.1 mmol/L (3.4-5.1); Sodium 138 mmol/L (137-145); Total Protein 7.3 g/dL (6.3-8.2)
[2020-07-31 14:52] LABS: Bilirubin Total < 0.1 mg/dL (0.2-1.3)
== END ==
PROVIDERS: PCP Registered Nurse Diabetes Educator; Referring Provider Family Medicine; Visit Provider Family Medicine
DX: R19.5 Other fecal abnormalities (principal); Z90.49 Acquired absence of other specified parts of digestive tract
CPT/HCPCS: 36415; 80053; 85025

== ENCOUNTER → 2020-08-01 07:49 | Outpatient (CLI) | payer OTHER, SELFPAY ==
[2020-08-02 17:27] LABS: Calprotectin, Stool 43 ug/g (0-120)
== END ==
PROVIDERS: PCP Registered Nurse Diabetes Educator; Referring Provider Family Medicine; Visit Provider Family Medicine
DX: R10.12 Left upper quadrant pain (principal); R19.5 Other fecal abnormalities; Z90.49 Acquired absence of other specified parts of digestive tract
CPT/HCPCS: 83993

== ENCOUNTER 2020-10-22 09:45 | Outpatient (RCR) | payer OTHER, SELFPAY ==
--- NOTE | 2020-10-15 12:20 | PT.OIE ---
Current Diagnoses Lower abdominal pain, unspecified (10/15/20) Abnormal posture (10/15/20) Past Medical History (Last Reviewed 07/31/20 @ 15:20 by Harris Mims MD) BCC (basal cell carcinoma of skin) (~2017) Breast cancer (~1998) Carpal tunnel syndrome (~2006) Chicken pox (~1963) Chronic GERD (~2009) Foot pain (~2015) History of bilateral mastectomy (~1999) History of breast cancer History of carpal tunnel release (~2006) History of section (~1990) Hx of cholecystectomy Impaired fasting blood sugar Kidney stones (~2010) Measles (~1963) No significant medical problems Ovarian cyst (~2015) Retinal detachment (~2006) Wears glasses Past Surgical History (Last Reviewed 07/31/20 @ 15:20 by Harris Mims MD) Anesthesia History of bilateral mastectomy (~1999) History of carpal tunnel release (~2006) History of section (~1990) Hx of cholecystectomy Patel's neuroma of right foot (~2015) Toe dislocation (~2015) Visit Care Team Role Provider Type NATALIE Venegas Primary Care Provider Advanced Acid Etch Operator Specialty: Medical Address: [address] [place] [address] Email: [email or web address] Harris Mims MD Attending Provider Physician Referring Provider Specialty: Family Practice Address: [address] [place] [address], [facility] Email: [email or web address] Physical Therapy Initial Evaluation PT-OP-A Visit Information Start: 10/15/20 08:44 Freq: Status: Active Protocol: Document 10/15/20 09:45 AW (Rec: 10/15/20 11:55 AW [email or web address]) Out-Patient Physical Therapy Visit Information Visit Information Visit Type Initial Evaluation Visit Start Time 09:00 Visit Stop Time 09:45 Total Visit Minutes 45 Visit Number 1 Number of MECHANICS HANDYMAN Visits 0 Evaluation Information Evaluation Date 10/15/20 Precautions Precautions history of breast cancer with B mastectomy PT-OP-B Current Condition Start: 10/15/20 08:44 Freq: Status: Active Protocol: Document 10/15/20 09:45 AW (Rec: 10/15/20 08:55 AW [email or web address]) Current Condition History of Current Condition Onset Date early 2020 Current Complaints abdominal pain, weight loss History of Current Condition Pt had laparoscopic cholecystectomy in June 2020. Her pain began before that time and continues. She has lost 12-14 pounds and has not regained any since surgery. Her lab work, however, is reassuring. Pt has ongoing lower rib pain associated with activity. It begins in her LUQ along the anterior aspect of the 12th rib and occasionally radiates to her side and back. She is most sensitive to deep palpation at the tip of her 12th rib. She feels the pain most when hiking or swimming which she engages in regularly. She also notices it during and after heavy gardening tasks. The pain feels like a tightening or cramping. It is not sharp, just sensitive. Pt denies association with eating though states she is still sensitive to too much fat in her diet which causes diarrhea almost immediately. She denies night pain. No history of shingles. She does endorse some urinary frequency and urgency in the mornings but no association with abdominal pain. Prior Treatments and Tests - laparoscopic cholecystectomy 06/21/2020 Future Testing and Treatments Planned none identified Prior Functional Status Baseline Function- ADL's Independent Baseline Function- Mobility Independent Current Functional Impairments (Reported) Functional Limitations- Recreation/ LUQ abdominal pain mostly with Hobbies activity. Pt states the pain does not stop her from hiking and swimming. Personal Factors Other Personal Factors That May Effect (+) general level of activity, Therapy/Recovery positive association with movement (+) healthy attitude toward pain PT-OP-C Subjective Start: 10/15/20 08:44 Freq: Status: Active Protocol: Document 10/15/20 09:45 AW (Rec: 10/15/20 11:55 AW [email or web address]) OP-PT Pain Assessment Pain Assessment Grid Paper Pain Assessment Grid Completed Yes: See copy scanned to EMR Comments Pain Comments Pain is primarily associated with movement but does not stop pt from hiking or swimming PT-OP-F Manual Assessment Start: 10/15/20 08:44 Freq: Status: Active Protocol: Document 10/15/20 09:45 AW (Rec: 10/15/20 11:55 AW [email or web address]) Manual Assessments Other Manual Assessments Other Manual Assessments Tender to deep palpation along left 12th rib. Abdomen is soft. Costal angle is ~90 degrees. Deep palpation of the diaphragm is not particularly painful. PT-OP-J Posture/Palpation/Skin Start: 10/15/20 08:44 Freq: Status: Active Protocol: Document 10/15/20 09:45 AW (Rec: 10/15/20 12:08 AW [email or web address]) Posture Evaluation Position Standing Head/C-Spine Posture Forward Head Shoulder Posture (L) Rounded,(R) Rounded,(L) Forward,(R) Forward Scapula Posture (L) Protracted,(R) Protracted Arm Posture (L) Internally Rotated,(R) Internally Rotated Hip Posture (L) Neutral,(R) Neutral Foot Arch (L) Medium Arch,(R) Medium Arch PT-OP-K Range of Motion Start: 10/15/20 08:44 Freq: Status: Active Protocol: Document 10/15/20 09:45 AW (Rec: 10/15/20 12:08 AW [email or web address]) Cervical Spine Range of Motion Cervical Spine Active Testing Position Sitting Comments WNL Lumbar Spine Range of Motion Lumbar Spine Active Testing Position Standing Comments WNL without pain except left lateral flexion. Fingertips reach knee joint in right lateral flexion. LUQ/rib pain noted in left lateral flexion with fingertips ~1.5 inches above knee joint Shoulder Goniometric Range of Motion Shoulder bilateral Shoulder ROM WFL Yes Hip Goniometric Range of Motion Hip bilateral Hip ROM WFL Yes Testing Position Supine PT-OP-M Strength Start: 10/15/20 08:44 Freq: Status: Active Protocol: Document 10/15/20 09:45 AW (Rec: 10/15/20 12:08 AW [email or web address]) Trunk Strength Trunk Manual Muscle Testing Testing Position Supine Core Stabilization Good active straight single leg raise without pain. Pt is able to lower bilateral legs from 90 degrees to table slowly with good control. Scapula Strength Scapula Manual Muscle Testing bilateral Elevation (C4) 5 Normal Adduction 4+ Good+ Abduction 4+ Good+ Depression 4 Good Shoulder Strength Shoulder Manual Muscle Testing bilateral Comments Grossly 5/5 in all planes without pain Hip Strength Hip Manual Muscle Testing bilateral Comments Grossly 5/5 in all planes without pain Knee Strength Knee Manual Muscle Testing bilateral Flexion (S2) 5 Normal Extension (L3) 5 Normal PT-OP-Q Treatments Start: 10/15/20 08:44 Freq: Status: Active Protocol: Document 10/15/20 09:45 AW (Rec: 10/15/20 12:08 AW [email or web address]) Therapeutic Exercises Supine Exercises diaphragmatic breathing Supine Exercise Name diaphragmatic breathing Equipment Used hands on chest/abdomen Reps/Minutes 2 min Comments focus on diaphragm recruitment vs accessory mm; no pain Sitting Exercises scapular retraction Sitting Exercise Name scapular retraction Side bilateral Reps/Minutes 2 x 10 Standing Exercises TL sidebend stretch Standing Exercise Name TL sidebend stretch Side bilateral Reps/Minutes 20 SH x 4 Manual Therapy Treatment Joint Mobilizations ribs Joint R ribs 9-12 Direction posterolateral Grade III Body Position Sitting Reps/Duration 4 min Comments assessment only with findings of good mobility PT-OP-T Assessment and Plan Start: 10/15/20 08:44 Freq: Status: Active Protocol: Document 10/15/20 09:45 AW (Rec: 10/15/20 12:20 AW [email or web address]) Physical Therapy Assessment Rehab Potential Rehabilitation Potential Excellent Evaluation Complexity Number of Personal Factors/Comorbidities 1-2 Number of Body Systems Impaired 1-2 Clinical Presentation at Evaluation Stable Impairments Impairments Pain Goals Three Impairment posture Mcfp Goal (LTG) Pt will be independent with HEP for postural awareness. LTG Duration 4 weeks - 11/12/20 Two Impairment pain with activity Mcfp Goal (LTG) Pt will swim and hike every other day without LUQ pain. LTG Duration 4 weeks - 11/12/20 One Impairment ROM Tombstone Erector Goal (LTG) Pt will be able to reach fingertips to knee joint in lateral flexion bilaterally without pain. LTG Duration 4 weeks - 11/12/20 Assessment Summary Assessment Salome is a 65 yo woman presenting to outpatient physical therapy with complaints of ongoing left upper quadrant abdominal pain along her 11th and 12th ribs. She had laparoscopic cholecystectomy in June. Pain symptoms improved but she continues to have pain with activities such as swimming and hiking. She presents with normal strength and range of motion except for pain with lumbar lateral flexion to the left side. Rib mobility was normal on assessment. Pt demonstrates excessive use of accessory muscles in respiration. Her habitual postures may be contributing to abdominal pain. Pt is expected to benefit from skilled therapy to address these impairments and to return her to regular activity without pain. Physical Therapy Plan Frequency and Duration Frequency of Treatment 1x/Week Duration of Treatment 4 weeks Plan of Care Start Date 10/15/20 Plan of Care End Date 11/14/20 Therapeutic Interventions Therapeutic Interventions Home Exercise Program,Manual Therapy,Neuromuscular Re- education,Patient/Caregiver Education,Self-Care/Home Management,Soft Tissue Mobilization,Taping, Therapeutic Activities, Therapeutic Exercises Modalities Cold Pack/Ice Massage,Hot Packs Next Visit Focus/Plan Next Note Type Treatment Note Next Visit Plan Review initial HEP and progress postural awareness
--- NOTE | 2020-10-15 12:22 | PT.OPPOC ---
Physical, Occupational & Speech Therapy At [facility] Current Diagnoses Lower abdominal pain, unspecified (10/15/20) Abnormal posture (10/15/20) Visit Care Team Role Provider Type NATALIE Venegas Primary Care Provider Advanced Paper Reclaiming Machine Operator Specialty: Medical Address: [address] [place] [address], [id number] Email: [email or web address] Harris Mims MD Attending Provider Physician Referring Provider Specialty: Family Practice Address: [address] [place] [address], [id number] Email: [email or web address] Plan Of Care PT-OP-T Assessment and Plan Start: 10/15/20 08:44 Freq: Status: Active Protocol: Document 10/15/20 09:45 AW (Rec: 10/15/20 12:20 AW [email or web address]) Physical Therapy Assessment Rehab Potential Rehabilitation Potential Excellent Evaluation Complexity Number of Personal Factors/Comorbidities 1-2 Number of Body Systems Impaired 1-2 Clinical Presentation at Evaluation Stable Impairments Impairments Pain Goals Three Impairment posture Fdc Goal (LTG) Pt will be independent with HEP for postural awareness. LTG Duration 4 weeks - 11/12/20 Two Impairment pain with activity Olive Picker Goal (LTG) Pt will swim and hike every other day without LUQ pain. LTG Duration 4 weeks - 11/12/20 One Impairment ROM Fdc Goal (LTG) Pt will be able to reach fingertips to knee joint in lateral flexion bilaterally without pain. LTG Duration 4 weeks - 11/12/20 Assessment Summary Assessment Salome is a 65 yo woman presenting to outpatient physical therapy with complaints of ongoing left upper quadrant abdominal pain along her 11th and 12th ribs. She had laparoscopic cholecystectomy in June. Pain symptoms improved but she continues to have pain with activities such as swimming and hiking. She presents with normal strength and range of motion except for pain with lumbar lateral flexion to the left side. Rib mobility was normal on assessment. Pt demonstrates excessive use of accessory muscles in respiration. Her habitual postures may be contributing to abdominal pain. Pt is expected to benefit from skilled therapy to address these impairments and to return her to regular activity without pain. Physical Therapy Plan Frequency and Duration Frequency of Treatment 1x/Week Duration of Treatment 4 weeks Plan of Care Start Date 10/15/20 Plan of Care End Date 11/14/20 Therapeutic Interventions Therapeutic Interventions Home Exercise Program,Manual Therapy,Neuromuscular Re- education,Patient/Caregiver Education,Self-Care/Home Management,Soft Tissue Mobilization,Taping, Therapeutic Activities, Therapeutic Exercises Modalities Cold Pack/Ice Massage,Hot Packs Next Visit Focus/Plan Next Note Type Treatment Note Next Visit Plan Review initial HEP and progress postural awareness Plan of Care Dates Plan of Care Start Date 10/15/20 Plan of Care End Date 11/14/20 Electronically Signed by: Va Chance, PT 10/15/20 1222 Please Sign and Return: I have reviewed this Plan of Care and certify that the skilled therapy services above are required to meet the patient?s needs. Physician Signature Date Printed Name and Credentials Clinical Instructor Signature Printed Name and Credentials
--- NOTE | 2020-10-22 10:28 | PT.OTN ---
Current Diagnoses Lower abdominal pain, unspecified (10/22/20) Abnormal posture (10/22/20) Physical Therapy Treatment Note PT-OP-A Visit Information Start: 10/15/20 08:44 Freq: Status: Active Protocol: Document 10/22/20 10:25 AW (Rec: 10/22/20 10:25 AW [id number]) Out-Patient Physical Therapy Visit Information Visit Information Visit Type Treatment Note Visit Start Time 09:45 Visit Stop Time 10:25 Total Visit Minutes 40 Visit Number 2 Number of BREAD BAKER Visits 0 Evaluation Information Evaluation Date 10/15/20 Precautions Precautions history of breast cancer with B mastectomy PT-OP-B Current Condition Start: 10/15/20 08:44 Freq: Status: Active Protocol: Document 10/15/20 09:45 AW (Rec: 10/15/20 08:55 AW [email or web address]) Current Condition History of Current Condition Onset Date early 2020 Current Complaints abdominal pain, weight loss History of Current Condition Pt had laparoscopic cholecystectomy in June 2020. Her pain began before that time and continues. She has lost 12-14 pounds and has not regained any since surgery. Her lab work, however, is reassuring. Pt has ongoing lower rib pain associated with activity. It begins in her LUQ along the anterior aspect of the 12th rib and occasionally radiates to her side and back. She is most sensitive to deep palpation at the tip of her 12th rib. She feels the pain most when hiking or swimming which she engages in regularly. She also notices it during and after heavy gardening tasks. The pain feels like a tightening or cramping. It is not sharp, just sensitive. Pt denies association with eating though states she is still sensitive to too much fat in her diet which causes diarrhea almost immediately. She denies night pain. No history of shingles. She does endorse some urinary frequency and urgency in the mornings but no association with abdominal pain. Prior Treatments and Tests - laparoscopic cholecystectomy 06/21/2020 Future Testing and Treatments Planned none identified Prior Functional Status Baseline Function- ADL's Independent Baseline Function- Mobility Independent Current Functional Impairments (Reported) Functional Limitations- Recreation/ LUQ abdominal pain mostly with Hobbies activity. Pt states the pain does not stop her from hiking and swimming. Personal Factors Other Personal Factors That May Effect (+) general level of activity, Therapy/Recovery positive association with movement (+) healthy attitude toward pain PT-OP-C Subjective Start: 10/15/20 08:44 Freq: Status: Active Protocol: Document 10/22/20 10:25 AW (Rec: 10/22/20 10:25 AW [id number]) OP-PT Subjective Patient Comments Patient Comments I think I'm having a little less pain but I have some questions about the breathing exercise. PT-OP-F Manual Assessment Start: 10/15/20 08:44 Freq: Status: Active Protocol: Document 10/15/20 09:45 AW (Rec: 10/15/20 11:55 AW [email or web address]) Manual Assessments Other Manual Assessments Other Manual Assessments Tender to deep palpation along left 12th rib. Abdomen is soft. Costal angle is ~90 degrees. Deep palpation of the diaphragm is not particularly painful. PT-OP-J Posture/Palpation/Skin Start: 10/15/20 08:44 Freq: Status: Active Protocol: Document 10/15/20 09:45 AW (Rec: 10/15/20 12:08 AW [email or web address]) Posture Evaluation Position Standing Head/C-Spine Posture Forward Head Shoulder Posture (L) Rounded,(R) Rounded,(L) Forward,(R) Forward Scapula Posture (L) Protracted,(R) Protracted Arm Posture (L) Internally Rotated,(R) Internally Rotated Hip Posture (L) Neutral,(R) Neutral Foot Arch (L) Medium Arch,(R) Medium Arch PT-OP-K Range of Motion Start: 10/15/20 08:44 Freq: Status: Active Protocol: Document 10/15/20 09:45 AW (Rec: 10/15/20 12:08 AW [email or web address]) Cervical Spine Range of Motion Cervical Spine Active Testing Position Sitting Comments WNL Lumbar Spine Range of Motion Lumbar Spine Active Testing Position Standing Comments WNL without pain except left lateral flexion. Fingertips reach knee joint in right lateral flexion. LUQ/rib pain noted in left lateral flexion with fingertips ~1.5 inches above knee joint Shoulder Goniometric Range of Motion Shoulder bilateral Shoulder ROM WFL Yes Hip Goniometric Range of Motion Hip bilateral Hip ROM WFL Yes Testing Position Supine PT-OP-M Strength Start: 10/15/20 08:44 Freq: Status: Active Protocol: Document 10/15/20 09:45 AW (Rec: 10/15/20 12:08 AW [email or web address]) Trunk Strength Trunk Manual Muscle Testing Testing Position Supine Core Stabilization Good active straight single leg raise without pain. Pt is able to lower bilateral legs from 90 degrees to table slowly with good control. Scapula Strength Scapula Manual Muscle Testing bilateral Elevation (C4) 5 Normal Adduction 4+ Good+ Abduction 4+ Good+ Depression 4 Good Shoulder Strength Shoulder Manual Muscle Testing bilateral Comments Grossly 5/5 in all planes without pain Hip Strength Hip Manual Muscle Testing bilateral Comments Grossly 5/5 in all planes without pain Knee Strength Knee Manual Muscle Testing bilateral Flexion (S2) 5 Normal Extension (L3) 5 Normal PT-OP-Q Treatments Start: 10/15/20 08:44 Freq: Status: Active Protocol: Document 10/22/20 10:25 AW (Rec: 10/22/20 10:25 AW [id number]) Therapeutic Exercises Supine Exercises bug Supine Exercise Name bug Equipment Used [facility]raball Comments OA/OL TA activation Supine Exercise Name BKFO, single leg may, double leg may Comments good TA awareness I feel it working B GH flexion Supine Exercise Name B GH flexion Side bilateral Resistance AROM Comments focus rib mobilityT diaphragmatic breathing Supine Exercise Name diaphragmatic breathing Equipment Used hands on chest/abdomen Reps/Minutes in standing, PT cues to push lower ribs out with inspiration Comments reviewed for HEP and rib mechanics Sitting Exercises scapular retraction Sitting Exercise Name scapular retraction Side bilateral Reps/Minutes 2 x 10 Comments review for standing ther ex set up Standing Exercises resisted trunk rotation Standing Exercise Name resisted trunk rotation Side bilateral Resistance TB3 Reps/Minutes 2x15 Comments no pain anti rotation press Standing Exercise Name anti rotation press Side bilateral Resistance TB3 Reps/Minutes 2x15 Comments core stab GH extension Standing Exercise Name GH extension Side bilateral Resistance TB3 Reps/Minutes 2x15 Comments focus posture, scapular mechanics resisted row Standing Exercise Name resisted row Side bilateral Resistance TB3 Reps/Minutes 2 x 15 Comments focus posture, scapular mechanics PT-OP-T Assessment and Plan Start: 10/15/20 08:44 Freq: Status: Active Protocol: Document 10/22/20 10:25 AW (Rec: 10/22/20 10:28 AW [id number]) Physical Therapy Assessment Goals Three Impairment posture Dustless Operator Goal (LTG) Pt will be independent with HEP for postural awareness. LTG Duration 4 weeks - 11/12/20 Two Impairment pain with activity Prison Goal (LTG) Pt will swim and hike every other day without LUQ pain. LTG Duration 4 weeks - 11/12/20 One Impairment ROM Prison Goal (LTG) Pt will be able to reach fingertips to knee joint in lateral flexion bilaterally without pain. LTG Duration 4 weeks - 11/12/20 Progress Towards Goals Progress Towards Goals Progressing Toward Goals Assessment Summary Assessment Salome has improving postural awareness and has been consistent with HEP. She notes she only has pain now with side bend and rotation. Added more rib mobility work to HEP this week. Physical Therapy Plan Frequency and Duration Frequency of Treatment 1x/Week Duration of Treatment 4 weeks Plan of Care Start Date 10/15/20 Plan of Care End Date 11/14/20 Therapeutic Interventions Therapeutic Interventions Home Exercise Program,Manual Therapy,Neuromuscular Re- education,Patient/Caregiver Education,Self-Care/Home Management,Soft Tissue Mobilization,Taping, Therapeutic Activities, Therapeutic Exercises Modalities Cold Pack/Ice Massage,Hot Packs Next Visit Focus/Plan Next Note Type Treatment Note Next Visit Plan Review HEP and progress postural awareness and rib mobility
--- NOTE | 2020-10-29 08:34 | PT.OPDS ---
Current Diagnoses Lower abdominal pain, unspecified (10/22/20) Abnormal posture (10/22/20) Visit Care Team Role Provider Type NATALIE Venegas Primary Care Provider Advanced Print Buyer Specialty: Medical Address: [address] [place] [address], [id number] Email: [email or web address] Harris Mims MD Attending Provider Physician Referring Provider Specialty: Family Practice Address: [address] [place] [address], [id number] Email: [email or web address] Visit Number Visit Number 2 Discharge Summary PT-OP-B Current Condition Start: 10/15/20 08:44 Freq: Status: Active Protocol: Document 10/15/20 09:45 AW (Rec: 10/15/20 08:55 AW [email or web address]) Current Condition History of Current Condition Onset Date early 2020 Current Complaints abdominal pain, weight loss History of Current Condition Pt had laparoscopic cholecystectomy in June 2020. Her pain began before that time and continues. She has lost 12-14 pounds and has not regained any since surgery. Her lab work, however, is reassuring. Pt has ongoing lower rib pain associated with activity. It begins in her LUQ along the anterior aspect of the 12th rib and occasionally radiates to her side and back. She is most sensitive to deep palpation at the tip of her 12th rib. She feels the pain most when hiking or swimming which she engages in regularly. She also notices it during and after heavy gardening tasks. The pain feels like a tightening or cramping. It is not sharp, just sensitive. Pt denies association with eating though states she is still sensitive to too much fat in her diet which causes diarrhea almost immediately. She denies night pain. No history of shingles. She does endorse some urinary frequency and urgency in the mornings but no association with abdominal pain. Prior Treatments and Tests - laparoscopic cholecystectomy 06/21/2020 Future Testing and Treatments Planned none identified Prior Functional Status Baseline Function- ADL's Independent Baseline Function- Mobility Independent Current Functional Impairments (Reported) Functional Limitations- Recreation/ LUQ abdominal pain mostly with Hobbies activity. Pt states the pain does not stop her from hiking and swimming. Personal Factors Other Personal Factors That May Effect (+) general level of activity, Therapy/Recovery positive association with movement (+) healthy attitude toward pain PT-OP-C Subjective Start: 10/15/20 08:44 Freq: Status: Active Protocol: Document 10/22/20 10:25 AW (Rec: 10/22/20 10:25 AW [id number]) OP-PT Subjective Patient Comments Patient Comments I think I'm having a little less pain but I have some questions about the breathing exercise. PT-OP-F Manual Assessment Start: 10/15/20 08:44 Freq: Status: Active Protocol: Document 10/15/20 09:45 AW (Rec: 10/15/20 11:55 AW [email or web address]) Manual Assessments Other Manual Assessments Other Manual Assessments Tender to deep palpation along left 12th rib. Abdomen is soft. Costal angle is ~90 degrees. Deep palpation of the diaphragm is not particularly painful. PT-OP-J Posture/Palpation/Skin Start: 10/15/20 08:44 Freq: Status: Active Protocol: Document 10/15/20 09:45 AW (Rec: 10/15/20 12:08 AW [email or web address]) Posture Evaluation Position Standing Head/C-Spine Posture Forward Head Shoulder Posture (L) Rounded,(R) Rounded,(L) Forward,(R) Forward Scapula Posture (L) Protracted,(R) Protracted Arm Posture (L) Internally Rotated,(R) Internally Rotated Hip Posture (L) Neutral,(R) Neutral Foot Arch (L) Medium Arch,(R) Medium Arch PT-OP-K Range of Motion Start: 10/15/20 08:44 Freq: Status: Active Protocol: Document 10/15/20 09:45 AW (Rec: 10/15/20 12:08 AW [email or web address]) Cervical Spine Range of Motion Cervical Spine Active Testing Position Sitting Comments WNL Lumbar Spine Range of Motion Lumbar Spine Active Testing Position Standing Comments WNL without pain except left lateral flexion. Fingertips reach knee joint in right lateral flexion. LUQ/rib pain noted in left lateral flexion with fingertips ~1.5 inches above knee joint Shoulder Goniometric Range of Motion Shoulder bilateral Shoulder ROM WFL Yes Hip Goniometric Range of Motion Hip bilateral Hip ROM WFL Yes Testing Position Supine PT-OP-M Strength Start: 10/15/20 08:44 Freq: Status: Active Protocol: Document 10/15/20 09:45 AW (Rec: 10/15/20 12:08 AW [email or web address]) Trunk Strength Trunk Manual Muscle Testing Testing Position Supine Core Stabilization Good active straight single leg raise without pain. Pt is able to lower bilateral legs from 90 degrees to table slowly with good control. Scapula Strength Scapula Manual Muscle Testing bilateral Elevation (C4) 5 Normal Adduction 4+ Good+ Abduction 4+ Good+ Depression 4 Good Shoulder Strength Shoulder Manual Muscle Testing bilateral Comments Grossly 5/5 in all planes without pain Hip Strength Hip Manual Muscle Testing bilateral Comments Grossly 5/5 in all planes without pain Knee Strength Knee Manual Muscle Testing bilateral Flexion (S2) 5 Normal Extension (L3) 5 Normal PT-OP-T Assessment and Plan Start: 10/15/20 08:44 Freq: Status: Active Protocol: Document 10/29/20 08:31 AW (Rec: 10/29/20 08:33 AW [email or web address]) Physical Therapy Plan Discharge Physical Therapy Discharge Reasons Patient Request Discharge Comments Pt attended PT for eval and one treatment session. She was educated in diaphragmatic breathing for improved rib mobility and given HEP for postural awareness. She called to cancel remaining appointments as she was satisfied with her progress.
== END 2020-10-30 08:31 | disposition home or self-care (01) ==
LOC: PHYS 09:45
PROVIDERS: PCP Registered Nurse Diabetes Educator; Referring Provider Family Medicine; Visit Provider Family Medicine
DX: R10.30 Lower abdominal pain, unspecified (principal); R29.3 Abnormal posture
CPT/HCPCS: 97110; 97161

== ENCOUNTER → 2021-01-16 08:57 | Outpatient (CLI) | payer OTHER, SELFPAY ==
[2021-01-16] MEDS: COVID-19 VACC #3, MRNA(MOD) 50 MCG/0.25 ML VIAL IM (09:01)
== END ==
PROVIDERS: PCP Registered Nurse Diabetes Educator; Visit Provider Internal Medicine
DX: Z23 Encounter for immunization (principal)
CPT/HCPCS: 0013A; 91301

== ENCOUNTER → 2021-06-30 07:07 | Outpatient (CLI) | payer OTHER, SELFPAY ==
[2021-06-30 07:52] LABS: Appearance Urine UA CLEAR; Bilirubin Urine UA NEGATIVE (NEGATIVE); Color Urine UA YELLOW; Glucose Urine UA NEGATIVE (Negative); Ketones Urine UA NEGATIVE (NEGATIVE); Leukocyte Esterase Urine UA TRACE (NEGATIVE); Nitrite Urine UA NEGATIVE (Negative); Occult Blood Urine UA TRACE-INTACT (Negative); Protein Urine UA NEGATIVE (Negative); Specific Gravity Urine UA <=1.005 (1.000-1.035); Urobilinogen Urine UA 0.2 E.U./dL (0.2)
[2021-06-30 08:02] LABS: RBC Urine 0-1/HPF (0-5/HPF); Squamous Epithelial Cell Urine 0-1 /HPF (0-5/HPF); WBC Urine None Seen (0-5/HPF); pH Urine UA 5.5 (4.5-8.0)
[2021-06-30 08:03] LABS: Bacteria Urine None Seen; Culture Indicated Urine Specimen Cultured
[2021-06-30 08:35] LABS: Add Manual Diff / Slide Review NO; Basophils Absolute Auto 0 /uL (0-100); Basophils Percent Auto 1.1 % (0-2); Eosinophils Absolute Auto 100 /uL (0-450); Eosinophils Percent Auto 1.8 % (2-4); Hemoglobin 12.8 g/dL (12.0-16.0); Lymphocytes Absolute Auto 1700 /uL (1100-4500); Mean Corpuscular HGB Conc 32.7 % (30-36); Mean Corpuscular Volume 91.6 fL (80-100); Monocytes Absolute Auto 400 /uL (0-900); Monocytes Percent Auto 11.2 % (3-14); Neutrophils Absolute Auto 1200 /uL (1500-7000); Neutrophils Percent Auto 35.9 % (50-75); Platelet Count 295 X10^3/uL (150-400); Red Blood Cell Count 4.26 X10^6/uL (4.0-5.2); Red Cell Distribution Width 13.4 % (11.6-14.8); White Blood Cell Count 3.3 X10^3/uL (4.5-11.0)
[2021-06-30 08:45] LABS: Alanine Aminotransferase 16 IU/L (<35); Albumin 4.5 g/dL (3.5-5.0); Albumin Globulin Ratio 1.7 (1.0-2.8); Alkaline Phosphatase 51 U/L (38-126); Amylase 103 U/L (30-110); Aspartate Aminotransferase 28 IU/L (14-36); BUN Creatinine Ratio 15.8 (6-22); Bilirubin Total 0.4 mg/dL (0.2-1.3); Blood Urea Nitrogen 12 mg/dL (7-17); Calcium 9.7 mg/dL (8.4-10.2); Carbon Dioxide 29 mmol/L (22-32); Chloride 101 mmol/L (98-107); Estimated Glomerular Filt Rate > 60 mL/min (>60); Globulin 2.7 g/dL (1.7-4.1); Glucose 100 mg/dL (80-110); HEMOLYSIS < 15 (0-50); Lipase 143 U/L (23-300); Potassium 4.2 mmol/L (3.4-5.1); Sodium 135 mmol/L (137-145); Total Protein 7.2 g/dL (6.3-8.2)
[2021-06-30 09:28] LABS: TSH w/ Reflex to FT4 3.33 uIU/mL (0.47-4.68)
[2021-07-01 20:38] LABS: Deamidated Gliadin Ab IgA 3 units (0-19); Deamidated Gliadin Ab IgG 2 units (0-19); Immunoglobulin A,Qn 159 mg/dL (87-352); t-Transglutaminase IgA <2 U/mL (0-3)
[2021-07-03 04:13] LABS: Almond IgE <0.10 kU/L (Class 0); Cashew Nut IgE <0.10 kU/L (Class 0); Codfish Allergy IgE < 0.10 kU/L (Class 0); Egg White IgE <0.10 kU/L (Class 0); Hazelnut IgE <0.10 kU/L (Class 0); Milk IgE <0.10 kU/L (Class 0); Peanut IgE <0.10 kU/L (Class 0); Salmon Allergy IgE < 0.10 kU/L (Class 0); Scallop Allergy IgE < 0.10 kU/L (Class 0); Sesame seed Allergy IgE < 0.10 kU/L (Class 0); Shrimp IgE <0.10 kU/L (Class 0); Soybean IgE <0.10 kU/L (Class 0); Tuna Allergy IgE < 0.10 kU/L (Class 0); Walnut IgE <0.10 kU/L (Class 0); Wheat Allergy IgE < 0.10 kU/L (Class 0)
== END ==
PROVIDERS: PCP Registered Nurse Diabetes Educator; Referring Provider Registered Nurse Diabetes Educator; Visit Provider Registered Nurse Diabetes Educator
DX: K21.9 Gastro-esophageal reflux disease without esophagitis (principal); R10.12 Left upper quadrant pain; R73.01 Impaired fasting glucose; R19.5 Other fecal abnormalities
CPT/HCPCS: 36415; 80053; 81001; 82150; 82784; 83516; 83690; 84443; 85025; 86003; 87086

== ENCOUNTER → 2021-07-31 07:13 | Outpatient (CLI) | payer OTHER, SELFPAY ==
[2021-07-31 07:58] LABS: Add Manual Diff / Slide Review NO; Basophils Absolute Auto 0 /uL (0-100); Basophils Percent Auto 0.8 % (0-2); Eosinophils Absolute Auto 100 /uL (0-450); Eosinophils Percent Auto 1.9 % (2-4); Hematocrit 36.8 % (36-46); Hemoglobin 12.5 g/dL (12.0-16.0); Lymphocytes Absolute Auto 1600 /uL (1100-4500); Lymphocytes Percent Auto 39.9 % (25-40); Mean Corpuscular HGB Conc 34.1 % (30-36); Mean Corpuscular Volume 90.9 fL (80-100); Monocytes Absolute Auto 400 /uL (0-900); Monocytes Percent Auto 10.5 % (3-14); Neutrophils Absolute Auto 1900 /uL (1500-7000); Neutrophils Percent Auto 46.9 % (50-75); Platelet Count 300 X10^3/uL (150-400); Red Blood Cell Count 4.04 X10^6/uL (4.0-5.2); Red Cell Distribution Width 14.1 % (11.6-14.8)
== END ==
PROVIDERS: PCP Registered Nurse Diabetes Educator; Referring Provider Registered Nurse Diabetes Educator; Visit Provider Registered Nurse Diabetes Educator
DX: D70.9 Neutropenia, unspecified (principal)
CPT/HCPCS: 36415; 85025

== ENCOUNTER → 2022-03-30 12:46 | Outpatient (CLI) | payer MEDICARE, OTHER, SELFPAY | PROVIDERS: PCP Internal Medicine; Referring Provider Internal Medicine; Visit Provider Internal Medicine | DX: Z78.0 Asymptomatic menopausal state (principal); Z13.820 Encounter for screening for osteoporosis; M85.852 Other specified disorders of bone density and structure, left thigh | CPT/HCPCS: 77080 ==

== ENCOUNTER → 2022-07-18 11:01 | Outpatient (CLI) | payer MEDICARE, OTHER, SELFPAY ==
[2022-07-18 12:27] LABS: Influenza A - CEPHEID Flu A NEGATIVE (NEGATIVE); Influenza B - CEPHEID Flu B NEGATIVE (NEGATIVE); Respiratory Syncytial Virus Negative (Negative)
[2022-07-18 12:28] LABS: COVID-19 CEPHEID 4-PLEX PCR Negative (Negative)
== END ==
PROVIDERS: PCP Internal Medicine; Visit Provider Nurse Practitioner Family
DX: R50.9 Fever, unspecified (principal)
CPT/HCPCS: 0241U

== ENCOUNTER → 2022-07-19 07:07 | Outpatient (CLI) | payer MEDICARE, OTHER, SELFPAY | PROVIDERS: PCP Internal Medicine; Referring Provider Nurse Practitioner Family; Visit Provider Nurse Practitioner Family | DX: B34.9 Viral infection, unspecified (principal) | CPT/HCPCS: 36415; 86790 ==

== ENCOUNTER → 2022-09-01 08:47 | Outpatient (CLI) | payer MEDICARE, OTHER, SELFPAY ==
[2022-09-01 10:15] LABS: Hematocrit 34.1 % (36-46); Hemoglobin 11.6 g/dL (12.0-16.0); Mean Corpuscular Hemoglobin 30.8 PG (26-34); Mean Corpuscular Volume 90.4 fL (80-100); Platelet Count 342 X10^3/uL (150-400); Red Blood Cell Count 3.77 X10^6/uL (4.0-5.2); Red Cell Distribution Width 14.4 % (11.6-14.8); White Blood Cell Count 3.5 X10^3/uL (4.5-11.0)
[2022-09-01 10:40] LABS: Alanine Aminotransferase 21 IU/L (<35); Albumin Globulin Ratio 1.4 (1.0-2.8); Alkaline Phosphatase 61 U/L (38-126); Aspartate Aminotransferase 28 IU/L (14-36); BUN Creatinine Ratio 35.2 (6-22); Bilirubin Total 0.4 mg/dL (0.2-1.3); Blood Urea Nitrogen 25 mg/dL (7-17); Carbon Dioxide 29 mmol/L (22-32); Chloride 98 mmol/L (98-107); Cholesterol 201 mg/dL (140-199); Estimated Glomerular Filt Rate > 60 mL/min (>60); Globulin 2.8 g/dL (1.7-4.1); Glucose 89 mg/dL (80-110); HEMOLYSIS < 15 (0-50); Potassium 4.6 mmol/L (3.4-5.1); Sodium 131 mmol/L (137-145); Total Protein 6.8 g/dL (6.3-8.2); Triglycerides 42 mg/dL (35-150)
[2022-09-01 10:49] LABS: HDL Cholesterol 139 mg/dL (40-60); LDL Cholesterol Calculated 54 mg/dL (<100)
[2022-09-01 11:09] LABS: TSH w/ Reflex to FT4 1.71 uIU/mL (0.47-4.68)
== END ==
PROVIDERS: PCP Internal Medicine; Referring Provider Internal Medicine; Visit Provider Internal Medicine
DX: E78.2 Mixed hyperlipidemia (principal); M85.80 Other specified disorders of bone density and structure, unspecified site; Z85.3 Personal history of malignant neoplasm of breast
CPT/HCPCS: 36415; 80053; 80061; 84443; 85027

== ENCOUNTER → 2023-09-06 08:50 | Outpatient (CLI) | payer MEDICARE, OTHER, SELFPAY ==
[2023-09-06 10:09] LABS: Hematocrit 37.6 % (36-46); Hemoglobin 12.7 g/dL (12.0-16.0); Mean Corpuscular HGB Conc 33.9 % (30-36); Mean Corpuscular Hemoglobin 31.1 PG (26-34); Mean Corpuscular Volume 91.9 fL (80-100); Platelet Count 303 X10^3/uL (150-400); Red Blood Cell Count 4.09 X10^6/uL (4.0-5.2); Red Cell Distribution Width 13.4 % (11.6-14.8)
[2023-09-06 10:28] LABS: HEMOLYSIS < 15 (0-50); Iron 90 ug/dL (37-170)
[2023-09-06 10:38] LABS: Alanine Aminotransferase 22 IU/L (<35); Albumin 4.5 g/dL (3.5-5.0); Albumin Globulin Ratio 1.7 (1.0-2.8); Alkaline Phosphatase 57 U/L (38-126); Aspartate Aminotransferase 31 IU/L (14-36); BUN Creatinine Ratio 25.7 (6-22); Bilirubin Total 0.5 mg/dL (0.2-1.3); Blood Urea Nitrogen 19 mg/dL (7-17); Calcium 9.8 mg/dL (8.4-10.2); Carbon Dioxide 31 mmol/L (22-32); Chloride 104 mmol/L (98-107); Cholesterol 224 mg/dL (140-199); Estimated Glomerular Filt Rate > 60 mL/min (>60); Globulin 2.6 g/dL (1.7-4.1); Glucose 101 mg/dL (80-110); HEMOLYSIS < 15 (0-50); Potassium 4.9 mmol/L (3.4-5.1); Sodium 137 mmol/L (137-145); Total Protein 7.1 g/dL (6.3-8.2); Triglycerides 51 mg/dL (35-150)
[2023-09-06 10:42] LABS: Percent Iron Saturation 28 % (15-50); Total Iron Binding Capacity 320 ug/dL (265-497); Transferrin 281 mg/dL (206-381)
[2023-09-06 10:50] LABS: HDL Cholesterol 146 mg/dL (40-60); LDL Cholesterol Calculated 68 mg/dL (<100)
[2023-09-06 11:05] LABS: Ferritin 31 ng/mL (11-264)
== END ==
PROVIDERS: PCP Internal Medicine; Referring Provider Internal Medicine; Visit Provider Internal Medicine
DX: E78.2 Mixed hyperlipidemia (principal); D64.9 Anemia, unspecified; Z85.3 Personal history of malignant neoplasm of breast
CPT/HCPCS: 36415; 80053; 80061; 82728; 83540; 83550; 85027

== ENCOUNTER 2023-11-27 10:26 | Emergency (ER) | payer MEDICARE, OTHER, SELFPAY ==
[2023-11-27 10:41] VITALS: BP 154/80; PULSE 72; RESP 16; TEMP 36.7; O2SAT 99; BMI 20.7
[2023-11-27] MEDS: PROPARACAINE 0.5% OPHTH SOL 1 DROPS EYE-LEFT (10:54)
[2023-11-27] MEDS: FLUORESCEIN 1 MG STRIP EYE-BOTH (11:12)
--- NOTE | 2023-11-27 11:15 | ED_ITS ---
HPI - General Adult General Chief complaint: Eye Problems Stated complaint: detached retina per pt Time Seen by Provider: 11/27/23 10:51 Source: patient Mode of arrival: Ambulatory Limitations: no limitations History of Present Illness HPI narrative: Patient is a 68-year-old female. No prior eye surgery to include no history of [place] K, Lasix, glaucoma, cataracts. She has had a retinal detachment in her right eye approximately 15-20 years ago. This was corrected. She states that it occurred after she ?jumped off of a fence?. She states the retina specialist seemed to think that it was because she had very poor vision and in astigmatism and then the Trauma which cause the symptoms. She was here today because for the past 2 days she has noticed an increase in the amount of flashes and also new floaters in her left eye. She states that these are transient. She has no loss of vision. She thinks that there are patches in her eye that are more blurry than what they normally are but she still can see through these patches. She denies headache, sinus congestion, nausea vomiting, fevers. No change in her right eye symptoms. Denies any trauma to her eye. No pain in the eye. Related Data Home Medications Medication Instructions Recorded Confirmed omeprazole 20 mg capsule,delayed 20 mg PO DAILY PRN 09/06/23 09/06/23 release Allergies Allergy/AdvReac Type Severity Reaction Status Date / Time No Known Drug Allergies Allergy Verified 09/06/23 07:50 Review of Systems Review of Systems Narrative: See HPI Patient History Medical History Primary osteoarthritis involving multiple joints Mixed hyperlipidemia Osteopenia Slow transit constipation Allergic rhinitis GERD without esophagitis History of breast cancer Wears glasses Foot pain (~2015) Carpal tunnel syndrome (~2006) Measles (~1963) Chicken pox (~1963) Retinal detachment (~2006) Ovarian cyst (~2015) Kidney stones (~2010) BCC (basal cell carcinoma of skin) (~2017) Surgical History Hx of cholecystectomy Anesthesia Toe dislocation (~2015) Patel's neuroma of right foot (~2015) History of carpal tunnel release (~2006) History of bilateral mastectomy (~1999) History of section (~1990) Family History Father History of heart disease Hypertension Stroke Mother Breast cancer Brother Accident Grandfather History of heart disease Grandmother Breast cancer Grandfather Leukemia Grandmother No problems noted. Social History household members: spouse Smoking Status: Never smoker Smoking Status: Never smoker alcohol intake frequency: 0-2 drinks per day Substance Use Type: does not use Exam Initial Vital Signs Initial Vital Signs: Vital Signs Temperature 98.0 F 11/27/23 10:41 Pulse Rate 72 11/27/23 10:41 Respiratory Rate 16 11/27/23 10:41 Blood Pressure 154/80 H 11/27/23 10:41 Pulse Oximetry 99 11/27/23 10:41 Oxygen Delivery Method Room Air 11/27/23 10:41 Const General: cooperative, comfortable and No ill appearing HENMT Head: normal to inspection Face and sinus: normal facial exam Eyes General: Yes appearance normal, both eyes and all related structures Visual Keene: normal visual keene by confrontation Alignment and Position: alignment normal and position normal Periorbital: periorbital findings normal Eyelids: eyelids normal Conjunctivae: conjunctivae normal Sclera: sclerae normal Cornea: corneas normal and fluorescein used Pupils: PERRL EOM: EOM intact bilaterally Other: Intra-ocular pressure right eye 19, intra-ocular pressure left eye 20. Skin General: no rashes or lesions noted Neuro General: patient alert, patient awake, patient oriented x3 and moves all extremities Cognition: normal cognition Speech: speech normal Course Orders Ordered: Discontinued Medications Fluorescein Sodium (Fluorescein 1 Mg Strip) 1 mg EYE-BOTH NOW ONE Stop: 11/27/23 10:52 Last Admin: 11/27/23 11:12 Dose: 1 mg Documented By: MAGGIE Proparacaine HCl (Proparacaine 0.5% Ophth Vidya) 1 drops EYE-LEFT NOW ONE Stop: 11/27/23 10:52 Last Admin: 11/27/23 10:54 Dose: 1 drop Documented By: MAGGIE Vital Signs Vital signs: Vital Signs - 8 hr 11/27/23 10:41 Temperature 98.0 F Pulse Rate 72 Respiratory Rate 16 Blood Pressure 154/80 H Pulse Oximetry 99 Oxygen Delivery Method Room Air Medical Decision Making MDM Narrative Medical decision making narrative: Patient was had 2 days of symptoms. She describes it as increase in flashes and floaters to the left eye. Some blurry vision but no loss of vision. Intra- ocular pressure is normal. Visual acuity noted. She does wear corrective lenses. No other HEENT symptoms. Low suspicion for CVA. Bedside ultrasound did not show any signs of a retinal detachment. She has no visual field deficits. No signs of infection. 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 Recommended that tomorrow she contact the evaporator supervisor office for a follow-up to discuss her symptoms. We did discuss strict return precautions. She expressed understanding and agreement plan. Discharge Plan Departure Patient Disposition: Home Clinical Impression: Visual distortions Instructions: DI for Visual Field Disturbances Activity Restrictions/Additional Instructions: I recommend that tomorrow morning you contact the ophthalmology office for a follow-up. You can let them know that you were seen here in the emergency department today and recommended that you follow-up. Return to the emergency department for new or worsening symptoms to include continued vision changes or loss of vision like we discussed. Prescriptions: No Action omeprazole 20 mg capsule,delayed release(DR/EC) 20 mg PO DAILY PRN Referrals: Alexandra Link MD [Physician] - Haim Brannon MD [Primary Care Provider] - Stand Alone Forms: Patient Portal/API
--- NOTE | 2023-11-27 11:31 | PC.NURSE ---
Left eye floaters; pt states she is concerned for a retinal detachment due to previous hx. Pt states she has astigmatism. Pt denies trauma to eye or doing any activities that may put her at risk for retinal detachment. Pt denies any new eye drops. Pt states symptoms have been persisting for the past couple of days w/ no improvement. Pupils equal round and reactive.
== END 2023-11-27 11:29 | disposition home or self-care (01) ==
PROVIDERS: Emergency Provider Emergency Medicine; PCP Internal Medicine
DX: H53.8 Other visual disturbances (principal)
CPT/HCPCS: 99282

== ENCOUNTER → 2024-08-15 09:41 | Outpatient (CLI) | payer MEDICARE, OTHER, SELFPAY ==
--- NOTE | 2024-08-15 09:46 | DI.RAD.S_ITS ---
PROCEDURE: XR CERVICAL SPINE 2V OR 3V INDICATIONS: C7 lump TECHNIQUE: Three views of the cervical spine were acquired. COMPARISON: None. FINDINGS: Cervical spine curvature and alignment: Normal. Bones: There are no osseous abnormalities. Disc spaces: Moderate C4-5 and C5-6 degenerative disc disease noted. There is mild C3-4 through C7-T1 degenerative facet disease Soft tissues: Few tiny calcifications are seen in the soft tissues overlying the C6-7 spinous processes. IMPRESSION: Degeneration. Soft tissue masses are typically not visualized by plain film. Suggest MRI if there is clinical concern Dictated by: Chato Leiva M.D. on 08/16/2024 at 12:11 Approved by: Chato Leiva M.D. on 08/16/2024 at 12:13
== END ==
PROVIDERS: PCP Internal Medicine; Referring Provider Internal Medicine; Visit Provider Internal Medicine
DX: M50.321 Other cervical disc degeneration at C4-C5 level (principal); M47.812 Spondylosis without myelopathy or radiculopathy, cervical region; G95.89 Other specified diseases of spinal cord
CPT/HCPCS: 72040

== ENCOUNTER → 2024-08-29 09:56 | Outpatient (CLI) | payer MEDICARE, OTHER, SELFPAY ==
--- NOTE | 2024-08-29 09:58 | DI.RAD.S_ITS ---
PROCEDURE: XR DEXA AXIAL SKELETON INDICATIONS: postmenopausal osteopenia COMPARISON: [facility], CR, XR DEXA AXIAL SKELETON, 03/30/2022, 13:04. FINDINGS: Lumbar Spine: Bone mineral density 0.938 (previously 0.928) g/cm2, T score -1.0 (previously -1.1). Left Femoral Neck: Bone mineral density 0.554 (previously 0.578) g/cm2, T score -2.7 (previously -2.4). Left Hip: Bone mineral density 0.821 (previously 0.856) g/cm2, T score -1.0 (previously -0.7). Fracture Risk Calculation (when applicable): 10-year fracture risk of a major osteoporotic fracture 13 percent and of a hip fracture 3.1 percent. (T score greater or equal to -1.0 to: NORMAL) (T score from -1.1 to -2.4: OSTEOPENIA) (T score less than or equal to -2.5: OSTEOPOROSIS) IMPRESSION: Osteoporosis--- recommend repeat DEXA in 2 years or less for reassessment of response to treatment. Follow-up guidelines as follows: Osteoporosis: Consider a repeat DEXA and Vertebral Fracture Assessment (VFA) exam in 2 years or sooner if medically necessary, to reassess this patient's status. Osteopenia: Consider a repeat DEXA in 2-3 years to reassess this patient's status, or if there is a new clinical indication. Normal: Consider a repeat DEXA in 5 years or sooner, or if there is a new clinical indication. All treatment decisions require clinical judgment and consideration of individual patient factors, including patient preferences, comorbidities, previous drug use, risk factors not captured in the FRAX model (e.g., frailty, falls, vitamin D deficiency, increased bone turnover, interval significant decline in bone density ) and possible under- or over-estimation of fracture risk by FRAX. In addition, the NOF Guide recommends that FDA-approved medical therapies be considered in postmenopausal women and men age >= 50 years with a: * Hip or vertebral (clinical or morphometric) fracture * T-score of <=-2.5 at the spine or hip * Ten-year fracture probability by FRAX of >= 3% for hip fracture or >=20% for major osteoporotic fracture. Dictated by: Mayo Worrell M.D. on 08/29/2024 at 18:29 Approved by: Mayo Worrell M.D. on 08/29/2024 at 18:32
== END ==
LOC: RAD 09:57
PROVIDERS: PCP Internal Medicine; Referring Provider Internal Medicine; Visit Provider Internal Medicine
DX: M81.0 Age-related osteoporosis without current pathological fracture (principal)
CPT/HCPCS: 77080

== ENCOUNTER 2024-10-02 12:19 | Emergency (ER) | payer MEDICARE, OTHER, SELFPAY ==
[2024-10-02] VITALS (9 sets, daily range): BP systolic 101–128; BP diastolic 58–78; PULSE 62–69; RESP 10–28; TEMP 36.7–37.1; O2SAT 95–100; BMI 20.7
--- NOTE | 2024-10-02 12:24 | DI.RAD.S_ITS ---
PROCEDURE: XR CHEST 1V INDICATIONS: Chest Pain TECHNIQUE: One view of the chest was acquired. COMPARISON: None. FINDINGS: Surgical changes and devices: None. Lungs and pleura: Lungs are clear. No pleural effusions or pneumothorax. Mediastinum: Mediastinal contours appear normal. Heart size is normal. Bones and chest wall: Moderate dextroscoliosis of thoracolumbar spine is seen. No suspicious bony lesions. Overlying soft tissues appear unremarkable. IMPRESSION: No acute cardiopulmonary pathology. Dictated by: Wil Davis M.D. on 10/02/2024 at 12:40 Approved by: Wil Davis M.D. on 10/02/2024 at 12:40
--- NOTE | 2024-10-02 12:24 | EKG_ITS ---
[address] [address] Test Date: 2024-10-02 Pat Name: Salome Bernal Department: Room: Gender: Female Rag Shredder: JIMENEZ : 1955 Requested By: Order Number: [id number] Reading MD: Trevon Bhatia Measurements Intervals [place] Rate: 63 P: 72 OR: 186 QRS: 82 QRSD: 82 T: 55 QT: 402 QTc: 411 Interpretive Statements Normal sinus rhythm Possible Left atrial enlargement Electronically Signed On 10-12-2024 13:39:43 PDT by Trevon Bhatia
[2024-10-02 12:53] LABS: Alanine Aminotransferase 19 IU/L (<35); Albumin 4.1 g/dL (3.5-5.0); Albumin Globulin Ratio 1.8 (1.0-2.8); Alkaline Phosphatase 49 U/L (38-126); Blood Urea Nitrogen 24 mg/dL (7-17); Calcium 9.6 mg/dL (8.4-10.2); Carbon Dioxide 27 mmol/L (22-32); Chloride 101 mmol/L (98-107); Creatine Kinase 87 U/L (30-135); Estimated Glomerular Filt Rate > 60 mL/min (>60); Globulin 2.3 g/dL (1.7-4.1); Glucose 158 mg/dL (70-99); HEMOLYSIS < 15 (0-50); INR 1.0 (0.9-1.3); Lipase 104 U/L (23-300); Magnesium 1.9 mg/dL (1.6-2.3); Potassium 3.9 mmol/L (3.4-5.1); Prothrombin Time 11.4 SECONDS (9.4-12.5); Sodium 133 mmol/L (137-145); Total Protein 6.4 g/dL (6.3-8.2)
[2024-10-02 12:54] LABS: Add Manual Diff / Slide Review NO; Hematocrit 34.4 % (36-46); Hemoglobin 11.7 g/dL (12.0-16.0); Lymphocytes Absolute Auto 1900 /uL (1100-4500); Mean Corpuscular HGB Conc 34.0 % (30-36); Mean Corpuscular Hemoglobin 30.9 PG (26-34); Mean Corpuscular Volume 91.0 fL (80-100); Platelet Count 305 X10^3/uL (150-400)
[2024-10-02 12:56] LABS: PTT Partial Thromboplastin Tim 24 SECONDS (25.1-36.5)
[2024-10-02 13:04] LABS: NT-proBNP (BNP-Adult 18+) 92 pg/mL (<125); Troponin I < 0.012 ng/mL (0.01-0.034)
[2024-10-02] MEDS: SUCRALFATE 1 GM/10 ML ORAL SUSP PO (15:03)
[2024-10-02] MEDS: MAG HYDROX/ALUMINUM/SIMETH SUS 30 ML, LIDOCAINE VISCOUS 2% 15 ML PO (15:03)
--- NOTE | 2024-10-02 23:48 | ED.CHESTPAIN ---
HPI - Chest Pain General Chief Complaint: Chest Pain Stated Complaint: Chest Pain Time Seen by Provider: 10/02/24 12:26 Mode of arrival: EMS History of Present Illness HPI narrative: This late middle-aged female presents to the emergency room with complaint of twinge like minimal chest pains x2 earlier this afternoon. She was seen by her provider in [place] who took an EKG and thought that she may be having a heart attack and sent her in for evaluation. Patient denies any previous cardiac events. He has had issues with esophageal reflux in the past. She has not been short of breath with the pain she experienced today. Related Data Previous Rx's ?Medication ?Instructions ?Recorded omeprazole 20 mg capsule,delayed 20 mg PO DAILY PRN GERD #90 caps 03/21/24 release sucralfate 100 mg/mL oral 10 ml PO QID 10 days #400 mL 10/02/24 suspension Allergies Allergy/AdvReac Type Severity Reaction Status Date / Time No Known Drug Allergies Allergy Verified 10/02/24 12:36 Review of Systems Review of Systems ROS Unobtainable: All systems reviewed & are unremarkable except as noted in HPI and below Constitutional Comments: Malaise secondary to minimal twinge like chest pains that are midsternal in location today. Patient was referred in due to the appearance of her EKG which was suspected to reveal an MO. ENT Ears, Nose, Mouth, and Throat: Reports system reviewed and no additional complaints, except as documented Cardiovascular Comments: Patient describes some minimal twinge like pains in her mid sternal area earlier today. She had an EKG taken by her provider who thought that it showed acute ST changes and she was sent in for evaluation for MO. Respiratory Comments: She has had no shortness of breath along with her chest pain. Gastrointestinal Comments: She denies any midepigastric tenderness were burning pain in her midsternal area. Musculoskeletal Comments: No leg pains. Patient History Medical History Allergic rhinitis BCC (basal cell carcinoma of skin) (~2017) Carpal tunnel syndrome (~2006) Chicken pox (~1963) Foot pain (~2015) GERD without esophagitis History of breast cancer Kidney stones (~2010) Measles (~1963) Mixed hyperlipidemia Osteopenia Ovarian cyst (~2015) Primary osteoarthritis involving multiple joints Retinal detachment (~2006) Slow transit constipation Wears glasses Surgical History Anesthesia History of bilateral mastectomy (~1999) History of carpal tunnel release (~2006) History of section (~1990) Hx of cholecystectomy Patel's neuroma of right foot (~2015) Toe dislocation (~2015) Family History Father History of heart disease Hypertension Stroke Mother Breast cancer Brother Accident Grandfather History of heart disease Grandmother Breast cancer Grandfather Leukemia Grandmother No problems noted. Social History household members: spouse Smoking Status: Never smoker Smoking Status: Never smoker alcohol intake frequency: 0-2 drinks per day Exam Initial Vital Signs Initial Vital Signs: Vital Signs Temperature 98.7 F 10/02/24 12:24 Pulse Rate 65 10/02/24 12:24 Respiratory Rate 19 10/02/24 12:24 Blood Pressure 128/78 10/02/24 12:24 Pulse Oximetry 98 10/02/24 12:24 Oxygen Delivery Method Room Air 10/02/24 12:24 Const Other: Discouraged appearing late middle-aged female due to having a long wait in the ER. Neck Neck: normal visual inspection and full ROM Resp Effort & Inspection: normal respiratory effort Auscultation: clear to auscultation bilaterally Cardio Other: No palpable midsternal tenderness GI Other: No epigastric tenderness. Neuro General: patient alert and patient awake Other: No focal deficits. Extrem General: full ROM Other: No calf tenderness. Course Course Course Narrative: This late middle-aged female presents to the emergency room for the complaint of a couple of twinge like pains in her midsternal part in midsternal area earlier today which caused her to see her provider who took an EKG and felt that she had acute ST changes it might be having an MO and referred her into the ER for evaluation. The patient had EKG which did not distinctly show acute ST elevation this was shared with the hospitalist on duty Dr. Rick Bernal and he did not feel either that it looked like the patient was having an acute MO. However cardiac labs were ordered in 2 sets of troponins were negative. Patient had no further severe chest pain in the ER. She is advised to get a nuclear stress test in the near future to be ordered by her regular provider to rule out angina on exertion. Otherwise she is to treat her chest pain symptomatically with simple measures such as Tylenol or ibuprofen. Orders Ordered: Discontinued Medications Aspirin (Aspirin 81 Mg Chew Tab) 324 mg PO NOW ONE Stop: 10/02/24 12:25 Last Admin: 10/02/24 12:39 Dose: Not Given Documented By: Al Hydrox/Mg Hydrox/Simethicone 30 ml/ Lidocaine HCl 15 ml 0 ml PO NOW ONE Stop: 10/02/24 14:32 Last Admin: 10/02/24 15:03 Dose: 30 ml Documented By: SP Sucralfate (Sucralfate 1 Gm/10 Ml Oral Susp) 1 gm PO NOW ONE Stop: 10/02/24 14:53 Last Admin: 10/02/24 15:03 Dose: 1 gm Documented By: SP MDM - Chest Pain Lab Data 10/02/24 12:20 10/02/24 12:20 Labs: Lab Results 10/02/24 Range/Units 12:20 WBC 5.1 (4.5-11.0) X10^3/uL RBC 3.77 L (4.0-5.2) X10^6/uL Hgb 11.7 L (12.0-16.0) g/dL Hct 34.4 L (36-46) % MCV 91.0 (80-100) fL MCH 30.9 (26-34) PG MCHC 34.0 (30-36) % RDW 13.5 (11.6-14.8) % Plt Count 305 (150-400) X10^3/uL Neut % (Auto) 49.8 L (50-75) % Lymph % (Auto) 37.7 (25-40) % Hernando % (Auto) 9.7 (3-14) % Eos % (Auto) 1.8 L (2-4) % Baso % (Auto) 1.0 (0-2) % Neut # (Auto) 2500 (8045-9008) /uL Lymph # (Auto) 1900 (1369-2015) /uL Hernando # (Auto) 500 (0-900) /uL Eos # (Auto) 100 (0-450) /uL Baso # (Auto) 100 (0-100) /uL PT 11.4 (9.4-12.5) SECONDS INR 1.0 (0.9-1.3) APTT 24 L (25.1-36.5) SECONDS Sodium 133 L (137-145) mmol/L Potassium 3.9 (3.4-5.1) mmol/L Chloride 101 (98-107) mmol/L Carbon Dioxide 27 (22-32) mmol/L BUN 24 H (7-17) mg/dL Creatinine 0.73 (0.52-1.04) mg/dL Estimated GFR > 60 (>60) mL/min BUN/Creatinine Ratio 32.9 H (6-22) Glucose 158 H (70-99) mg/dL Calcium 9.6 (8.4-10.2) mg/dL Magnesium 1.9 (1.6-2.3) mg/dL Total Bilirubin 0.4 (0.2-1.3) mg/dL AST 30 (14-36) IU/L ALT 19 (<35) IU/L Alkaline Phosphatase 49 (38-126) U/L Total Creatine Kinase 87 (30-135) U/L Troponin I < 0.012 (0.01-0.034) ng/mL NT-Pro-B Natriuret Pep 92 (<125) pg/mL Total Protein 6.4 (6.3-8.2) g/dL Albumin 4.1 (3.5-5.0) g/dL Globulin 2.3 (1.7-4.1) g/dL Albumin/Globulin Ratio 1.8 (1.0-2.8) Lipase 104 (23-300) U/L Discharge Plan Departure Patient Disposition: Home Clinical Impression: GERD without esophagitis Instructions: DI for Angina Activity Restrictions/Additional Instructions: need Dr. Brannon to achedule nuclear strss erika next week with cardiology Prescriptions: New sucralfate 100 mg/mL suspension 10 ml PO QID 10 Days Qty: 400 0RF Rx Instructions: swish in mouth and swallow; use after food/drink No Action omeprazole 20 mg capsule,delayed release(DR/EC) 20 mg PO DAILY PRN (Reason: GERD) Qty: 90 1RF Referrals: Haim Brannon MD [Primary Care Provider, Internal Medicine] Stand Alone Forms: Patient Portal/API
== END 2024-10-02 15:13 | disposition home or self-care (01) ==
PROVIDERS: Emergency Provider Emergency Medicine; PCP Internal Medicine
DX: K21.9 Gastro-esophageal reflux disease without esophagitis (principal)
CPT/HCPCS: 71045; 80053; 82550; 83690; 83735; 83880; 84484; 85025; 85610; 85730; 93005; 99283; 99284